=== PATIENT | male | born 1940 | race Caucasian/White ===

== ENCOUNTER → 2018-01-24 16:44 | Outpatient (CLI) | payer OTHER, SELFPAY ==
--- NOTE | 2018-01-24 16:47 | DI.MRI.S_ITS ---
PROCEDURE: MR CERVICAL SPINE WO CON INDICATIONS: HEREDITARY AND IDIOPATHIC HEUROPATHY,SPINAL STENOSIS TECHNIQUE: Noncontrast sagittal T1 spin echo and T2 fast spin echo, sagittal STIR, foraminal oblique sagittal T2 fast spin echo, and axial gradient echo or T2 fast spin echo through the cervical spine. COMPARISON: [facility], MR, C-SPINE WITHOUT CONTRAST, 09/22/2007, 15:27. FINDINGS: Image quality: Excellent. Alignment and Curvature: There is grade I C4 on C5 and C5 on C6 retrolisthesis. This is unchanged when compared with the study dated 09/22/07. Bone Marrow: Marrow demonstrates normal overall signal. Spinal Cord: Visualized spinal cord has normal size and signal. No cerebellar tonsillar herniation. Paraspinous Soft Tissues: No paravertebral masses. Prevertebral soft tissues are normal in thickness. C2-C3: Normal appearance. C3-C4: Mild disc desiccation and height loss. Blood based his bulge. Mild canal stenosis. Mild right and severe left foraminal stenosis. The degree of left neural foraminal narrowing is increased when compared with the study dated 09/22/07. C4-C5: Retrolisthesis. Moderate disc desiccation and height loss. Broad-based disc bulge. Mild canal stenosis. Severe bilateral neuroforaminal stenosis. These findings are unchanged when compared with the prior study. C5-C6: Retrolisthesis. Moderate distance ccation height loss. Broad-based disc bulge. Moderate canal stenosis. Severe bilateral foraminal narrowing. These findings are similar in extent to the prior study. C6-C7: Moderate disc desiccation and height loss. Broad-based disc bulge. Moderate canal stenosis. Severe bilateral foraminal stenosis. The extent of canal stenosis is slightly increased when compared with the prior study. C7-T1: Mild disc desiccation and height loss. No canal stenosis. No foraminal stenosis. These findings are unchanged. IMPRESSION: 1. Multilevel mild to moderate disc desiccation and height loss, overall similar in extent to the study dated 09/22/07. 2. Increased left neuroforaminal stenosis at C3-4 when compared with the prior study. 3. Unchanged severe bilateral neuroforaminal narrowing at C4-5, C5-6, and C6-7 when compared with the study from 09/22/07. 4. Slight increased canal stenosis at C6-7 when compared with the prior study. 5. Unchanged grade I retrolisthesis at C4-5 and C5-6. Dictated by: Cielo Wu M.D. on 01/27/2018 at 11:04 Approved by: Cielo Wu M.D. on 01/27/2018 at 11:12
--- NOTE | 2018-01-24 17:27 | DI.MRI.S_ITS ---
PROCEDURE: MR LUMBAR SPINE WO CON INDICATIONS: BILATERAL FOOT PAIN TECHNIQUE: Noncontrast sagittal T1 spin echo and T2 fast echo, sagittal STIR, axial T1 and T2 fast spin echo through the lumbar spine. In cases with scoliosis, additional coronal T2 fast spin echo may be performed. COMPARISON: [facility], CT, IVP (ABD & PEL WWO CONTRAST), 09/23/2012, 13:33. [facility], CR, KUB XRAY (1 VIEW ABDOMEN), 10/24/2015, 8:09. [facility], MR, L-SPINE WITHOUT CONTRAST, 01/06/2008, 6:47. FINDINGS: Image quality: Excellent. Alignment and Curvature: There is normal bony alignment. Bone Marrow: Marrow is of normal overall signal. No acute vertebral body compression fractures. Spinal Cord: Conus medullaris terminates at the mid L1 level. Visualized cord demonstrates normal signal and size. Paraspinous Soft Tissues: No paravertebral masses. Bilateral parapelvic renal cysts are present. L1-L2: Moderate disc height loss and desiccation. Mild diffuse disc bulge. Mild bilateral facet and ligamentum hypertrophy. Mild canal stenosis. No foraminal stenosis. No change. L2-L3: Moderate disc height loss and desiccation. Moderate diffuse disc bulge with superimposed broad-based left posterolateral protrusion. Mild bilateral facet and ligamentum flavum hypertrophy. Mild canal stenosis. Mild left greater than right foraminal stenosis. Minimal posterior deviation of the left L3 nerve root. No change. L3-L4: Moderate disc height loss and desiccation. Mild diffuse disc bulge. Mild bilateral facet and ligamentum flavum hypertrophy. Increased, mild canal stenosis. Increased mild bilateral foraminal stenosis. L4-L5: Mild disco loss and desiccation. Mild diffuse disc bulge. Superimposed small central protrusion. Increased, mild canal stenosis. Increased, mild right greater than left foraminal stenosis. L5-S1: Moderate disc height loss and desiccation. Mild diffuse disc bulge. Mild bilateral facet hypertrophy. Mild canal stenosis. Mild bilateral foraminal stenosis. No change. IMPRESSION: 1. Multilevel degenerative disc and facet disease, as well as ligamentum flavum hypertrophy and epidural lipomatosis. 2. Mild multilevel canal stenoses. 3. Multilevel mild foraminal stenoses. 4. No change in minimal posterior displacement of the left L3 nerve root at the L2-L3 disc space level. Recommend correlation with clinical symptoms to ascertain relevance of this finding. Dictated by: Cielo Wu M.D. on 01/27/2018 at 11:48 Approved by: Juan Morrissey M.D. on 01/27/2018 at 13:51
== END ==
PROVIDERS: Visit Provider Internal Medicine
DX: M48.02 Spinal stenosis, cervical region (principal); M43.12 Spondylolisthesis, cervical region; G60.9 Hereditary and idiopathic neuropathy, unspecified; M48.07 Spinal stenosis, lumbosacral region; M48.061 Spinal stenosis, lumbar region without neurogenic claudication; M79.672 Pain in left foot; M79.671 Pain in right foot; M51.36 Other intervertebral disc degeneration, lumbar region; M51.37 Other intervertebral disc degeneration, lumbosacral region; E88.2 Lipomatosis, not elsewhere classified
CPT/HCPCS: 72141; 72148

== ENCOUNTER → 2018-02-13 09:08 | Outpatient (CLI) | payer OTHER, SELFPAY ==
[2018-02-13 10:29] LABS: Alanine Aminotransferase 48 IU/L (21-72); Albumin 4.3 g/dL (3.5-5.0); Albumin Globulin Ratio 1.9 (1.0-2.8); Alkaline Phosphatase 71 U/L (38-126); Aspartate Aminotransferase 32 IU/L (17-59); BUN Creatinine Ratio 28.6 (6-22); Bilirubin Total 1.1 mg/dL (0.2-1.3); Blood Urea Nitrogen 20 mg/dL (9-20); Calcium 9.2 mg/dL (8.4-10.2); Carbon Dioxide 25 mmol/L (22-32); Chloride 107 mmol/L (98-107); Estimated Glomerular Filt Rate > 60.0 mL/min (>60); Globulin 2.3 g/dL (1.7-4.1); Glucose 106 mg/dL (80-110); HEMOLYSIS < 15 (0-50); Potassium 4.5 mmol/L (3.4-5.1); Sodium 142 mmol/L (137-145); Total Protein 6.6 g/dL (6.3-8.2)
[2018-02-17 09:46] LABS: Lipoprofile NMR SEE SEPERATE REPORT
== END ==
PROVIDERS: Family Provider Internal Medicine; PCP Internal Medicine; Visit Provider Urology
DX: N40.1 Benign prostatic hyperplasia with lower urinary tract symptoms (principal); Z80.42 Family history of malignant neoplasm of prostate; I25.10 Atherosclerotic heart disease of native coronary artery without angina pectoris; I10 Essential (primary) hypertension; E78.2 Mixed hyperlipidemia; E78.89 Other lipoprotein metabolism disorders
CPT/HCPCS: 36415; 80053; 83695; 83704; 83735; 84153

== ENCOUNTER → 2018-09-08 07:53 | Outpatient (CLI) | payer OTHER, SELFPAY ==
[2018-09-08 08:53] LABS: Alanine Aminotransferase 28 IU/L (21-72); Albumin 4.3 g/dL (3.5-5.0); Albumin Globulin Ratio 1.7 (1.0-2.8); Alkaline Phosphatase 50 U/L (38-126); Aspartate Aminotransferase 31 IU/L (17-59); BUN Creatinine Ratio 17.5 (6-22); Bilirubin Total 0.9 mg/dL (0.2-1.3); Blood Urea Nitrogen 14 mg/dL (9-20); Calcium 9.6 mg/dL (8.4-10.2); Carbon Dioxide 29 mmol/L (22-32); Chloride 105 mmol/L (98-107); Estimated Glomerular Filt Rate > 60.0 mL/min (>60); Globulin 2.6 g/dL (1.7-4.1); Glucose 106 mg/dL (80-110); HEMOLYSIS < 15 (0-50); Potassium 5.1 mmol/L (3.4-5.1); Sodium 140 mmol/L (137-145); Total Protein 6.9 g/dL (6.3-8.2)
[2018-09-10 10:11] LABS: Lipoprofile NMR SEE SEPARATE REPORTS
[2018-09-10 12:34] LABS: Lipoprotein (a) 159 nmol/L (<75)
== END ==
PROVIDERS: Family Provider Urology; PCP Internal Medicine; Visit Provider Specialist
DX: E78.41 Elevated Lipoprotein(a) (principal); E78.2 Mixed hyperlipidemia
CPT/HCPCS: 36415; 80053; 83695; 83704

== ENCOUNTER → 2019-07-22 08:58 | Outpatient (CLI) | payer MEDICARE, SELFPAY ==
[2019-07-22 10:07] LABS: Alanine Aminotransferase 25 IU/L (<50); Albumin 4.2 g/dL (3.5-5.0); Albumin Globulin Ratio 1.7 (1.0-2.8); Alkaline Phosphatase 51 U/L (38-126); Aspartate Aminotransferase 31 IU/L (17-59); BUN Creatinine Ratio 15.6 (6-22); Bilirubin Total 0.6 mg/dL (0.2-1.3); Blood Urea Nitrogen 12 mg/dL (9-20); Calcium 9.5 mg/dL (8.4-10.2); Carbon Dioxide 23 mmol/L (22-32); Chloride 108 mmol/L (98-107); Estimated Glomerular Filt Rate > 60.0 mL/min (>60); Globulin 2.5 g/dL (1.7-4.1); Glucose 111 mg/dL (80-110); HEMOLYSIS < 15 (0-50); Potassium 3.9 mmol/L (3.4-5.1); Sodium 139 mmol/L (137-145); Total Protein 6.7 g/dL (6.3-8.2)
[2019-07-23 06:36] LABS: SARS CoV19 IgG Negative (Negative)
[2019-07-24 07:40] LABS: Cholesterol, Total 168 mg/dL (100-199); HDL-Cholesterol 85 mg/dL (>39); HDL-Particle (Total) 43.7 umol/L (>=30.5); Historical Reading Comment: (.); LDL Particle 521 nmol/L (<1000); LDL-Cholsterol 67 mg/dL (0-99); LP-IR Score 25 (<=45); Small LDL- Particle <90 nmol/L (<=527); Triglycerides 82 mg/dL (0-149)
== END ==
PROVIDERS: Specialist; Family Provider Urology; PCP Internal Medicine; Referring Provider Internal Medicine; Visit Provider Internal Medicine
DX: E78.2 Mixed hyperlipidemia (principal)
CPT/HCPCS: 36415; 80053; 80061; 83704; 86769

== ENCOUNTER → 2019-08-04 15:53 | Outpatient (CLI) | payer MEDICARE, SELFPAY ==
--- NOTE | 2019-08-04 16:23 | DI.ECHO.S_ITS ---
Echocardiogram Report + + :Name: CAROLA MCKNIGHT Study Date: 08/04/2019 Height: 67 in : :[facility] Weight: 174 lb : : Gender: Male BSA: 1.9 m2 : :: 1940 Age: 78 yrs BP: 140/75 mmHg: :Reason For Study: MURMUR : : Performed By: Pb Lawler : :Referring: AUSTEN OSORIO : + + Interpretation Summary The left ventricle appears normal in size with normal systolic function with an EF estimated at 60 to 65% without focal wall motion abnormality, and appears slightly smaller and slightly more dynamic compared to the previous study. There is now evidence for a mild relaxation abnormality, new from the previous exam but probable normal filling pressures. The right ventricle appears mildly enlarged with systolic function the lower limits of normal but unchanged from the previous exam. Right ventricular systolic pressure is again estimated at 25 mmHg with a CVP of 3 mmHg, unchanged from the previous study. There is mild left atrial enlargement with normal right atrial, the latter slightly smaller compared to the previous study. There is mild to moderate mitral and moderate pulmonic valve regurgitation, both appearing slightly more prominent compared to the previous study. There is trivial tricuspid regurgitation which is less prominent. There is mild aortic valve stenosis with a peak velocity of 2.5 m/s, up from 2.2 m/s previously with a mean gradient of 15 mmHg compared to 9 mmHg, previously. There is mild aortic regurgitation which is also slightly progressive. The ascending aorta is mildly enlarged but unchanged in size. The patient was in sinus rhythm at 60 to 70 bpm which is slightly faster compared to the previous exam. Procedure: A two-dimensional transthoracic echocardiogram with color flow and Doppler was performed. The study quality was technically adequate. Comparison is made with the echocardiogram of 05/24/16. The patient was in normal sinus rhythm during the exam. Left Ventricle: The left ventricle is normal in size, wall thickness, and systolic function without any focal wall motion abnormalities. The ejection fraction is estimated to be 60-65%. This is slightly smaller and slightly more dynamic compared to the previous study. Diastolic parameters suggest a relaxation abnormality of the left ventricle, consistent with probable normal filling pressures. This is new compared to the previous study. Right Ventricle: The right ventricle is mildly dilated. Right ventricular systolic function is at the lower limits of normal. This is unchanged compared to the previous study. Atria: The left atrium is mildly dilated. This is unchanged compared to the previous study. Right atrial size is normal. The right atrium has mildly decreased in size since the prior echo exam. The interatrial septum is intact with no evidence for an atrial septal defect. Mitral Valve: There is mild mitral annular calcification. The mitral valve leaflets appear borderline thickened, but open well. There is mild to moderate mitral regurgitation. This is slightly more prominent compared to the previous study. Aortic Valve: There is mildly reduced leaflet mobility. The aortic valve is trileaflet. The aortic valve is mildly calcified. There is mild aortic stenosis. The peak aortic velocity is 2.53 m/sec. The aortic valve mean gradient is 15.1 mmHg. The calculated aortic valve area is 1.5 cm2. The aortic valve area is 2.0 centimeters squared by planimetry. This is slightly progressive compared to the previous study. There is mild aortic regurgitation. Tricuspid Valve: The tricuspid valve is normal in structure and function. There is trace tricuspid regurgitation. This is less prominent compared to the previous study. The right ventricular systolic pressure is estimated to be at least 25 mmHg based on an estimated right atrial pressure of 3 mm Hg. This is unchanged compared to the previous study. Pulmonic Valve: The pulmonic valve is normal in structure and function. There is moderate pulmonic regurgitation. This is slightly mopre prominent compared to the previous study. Great Vessels: The aortic root is normal size. The ascending aorta is mildly enlarged. This is unchanged compared to the previous study. The pulmonary artery is normal size. The IVC is of normal diameter and collapses greater than 50% with a sniff. This suggests a low right atrial pressure of 3 mm Hg. Pericardium/ Pleura There is no pericardial effusion. There is no pleural effusion. MMode/2D Measurements & Calculations LVIDd: 5.1 cm LVOT diam: 2.1 cm LVIDs: 3.2 cm Ao root diam: 3.4 cm FS: 37.4 % asc Aorta Diam: 3.7 cm EPSS: 0.37 cm Ao Arch Diam (Prox Trans): 2.5 cm IVSd: 0.95 cm LVPWd: 0.87 cm LV wilson. diameter/BSA (cm/m^2): 2.7 LV sys. diameter/BSA (cm/m^2): 1.7 LA dimension: 4.3 cm RA long axis: 4.9 cm LA A2 area: 20.9 cm2 RA area: 16.7 cm2 LA A4 area: 20.7 cm2 RA vol: 48.3 ml LA length (vol): 5.2 cm RA : 25.3 ml/m2 LA vol: 71.0 ml IVC diam: 1.7 cm LA vol index: 37.2 ml/m2 RVD1 (basal): 4.8 cm RVD2 (mid): 4.6 cm TAPSE: 2.5 cm Doppler Measurements & Calculations Ao V2 max: 253.0 cm/sec LVOT Max Lucas: 107.6 cm/sec Ao V2 mean: 186.8 cm/sec LV V1 max P.6 mmHg Ao max P.6 mmHg LV V1 VTI: 23.2 cm Ao mean P.1 mmHg WESLEY(I,D): 1.3 cm2 Ao V2 VTI: 60.8 cm WESLEY(V,D): 1.5 cm2 sev ratio: 0.38 WESLEY indexed to BSA (cm^2/m^2): 0.69 MV E max lucas: 81.1 cm/sec TR max lucas: 234.8 cm/sec MV A max lucas: 103.4 cm/sec TR max P.1 mmHg MV E/A: 0.78 PA V2 max: 97.4 cm/sec Med Peak E' Lucas: 6.1 cm/sec PA V2 mean: 69.1 cm/sec E/E' med: 13.3 PA mean P.1 mmHg Lat Peak E' Lucas: 8.4 cm/sec PA pr(Accel): 31.0 mmHg E/E' lat: 9.6 E/e' average: 11.5 MV dec time: 0.20 sec SV(LVOT): 80.0 ml Reading Physician:PM
== END ==
PROVIDERS: Family Provider Urology; PCP Internal Medicine; Referring Provider Specialist; Visit Provider Specialist
DX: I08.0 Rheumatic disorders of both mitral and aortic valves (principal); I77.89 Other specified disorders of arteries and arterioles; R01.1 Cardiac murmur, unspecified
CPT/HCPCS: 93306

== ENCOUNTER → 2019-11-25 08:38 | Outpatient (CLI) | payer MEDICARE, SELFPAY ==
--- NOTE | 2019-11-25 | DI.MRI.S_ITS ---
PROCEDURE: MR LUMBAR SPINE WO CON INDICATIONS: Sciatica, right side TECHNIQUE: Noncontrast sagittal T1 spin echo and T2 fast echo, coronal T2, sagittal STIR, axial T1 and T2 fast spin echo through the lumbar spine. COMPARISON: [facility], MR, MR LUMBAR SPINE WO CON, 01/24/2018, 18:01. [facility], CR, KUB XRAY (1 VIEW ABDOMEN), 10/24/2015, 8:09. FINDINGS: Image quality: Excellent. Alignment and Curvature: 5 lumbar type vertebral bodies are present by plain film. There is mild, grade 1 retrolisthesis of L1 on L2, L2 on L3, L3 on L4, and L4 on L5. Bone Marrow: Marrow is of normal overall signal. No acute vertebral body compression fractures. Moderate reactive signal within the endplates adjacent to the L2-L3 intervertebral disc, increased from the prior examination. Mild reactive signal within the endplates adjacent to the L1-L2, L3-L4, L4-L5, and L5-S1 intervertebral discs. Spinal Cord: Conus medullaris terminates at the mid L1 level. Visualized cord demonstrates normal signal and size. Paraspinous Soft Tissues: No paravertebral masses. L1-L2: Moderate disc height loss and desiccation. Mild diffuse disc bulge. Mild facet and ligamentum flavum hypertrophy. Mild canal stenosis. No foraminal stenosis. No change. L2-L3: There is increased, severe disc height loss and desiccation. Moderate diffuse disc bulge is present with superimposed left posterolateral protrusion, which is increased. Mild facet and ligamentum flavum hypertrophy is present. Mild epidural lipomatosis. There is increased, moderate canal stenosis. There is no change in mild bilateral foraminal stenosis. There is compression of the left L3 nerve root within the lateral recess, new since the prior examination. L3-L4: Moderate disc height loss and desiccation. Mild diffuse disc bulge. Mild facet and ligamentum flavum hypertrophy. Mild canal stenosis. Mild bilateral foraminal stenosis. No change. L4-L5: Mild disc height loss and desiccation. Mild diffuse disc bulge with superimposed central protrusion. Mild facet and ligamentum flavum hypertrophy. Mild epidural lipomatosis. Mild canal stenosis. Mild right greater than left foraminal stenosis. No change. L5-S1: Moderate disc height loss and desiccation. Mild diffuse disc bulge. Mild facet hypertrophy bilaterally. Mild canal stenosis. Mild bilateral foraminal stenosis. No change. IMPRESSION: 1. Multilevel degenerative disc and facet disease, as well as ligamentum flavum hypertrophy and epidural lipomatosis. 2. Multilevel canal stenoses, worst at L2-L3, where there is increased, moderate canal stenosis. 3. Mild multilevel foraminal stenoses. 4. Left L3 nerve root compression at the L2-L3 disc space level as described above. Recommend correlation with clinical symptoms to ascertain relevance of this finding. Dictated by: Juan Morrissey M.D. on 11/25/2019 at 10:58 Approved by: Juan Morrissey M.D. on 11/25/2019 at 11:05
--- NOTE | 2019-11-25 | DI.RAD.S_ITS ---
PROCEDURE: XR LUMBAR SPINE 2-3V INDICATIONS: Low back pain TECHNIQUE: 3 views of the lumbar spine were acquired. COMPARISON: [facility], MR, MR LUMBAR SPINE WO CON, 01/24/2018, 18:01. [facility], MR, MR LUMBAR SPINE WO CON, 11/25/2019, 9:01. FINDINGS: Bones: 5 [id number] vertebrae are present. There is minimal dextroconvex scoliotic curvature. There is minimal retrolisthesis seen at L1-2 and mild retrolisthesis seen at L2-3. No vertebral body compression fractures. No suspicious bony lesions. Bridging anterior osteophytes are seen at L1-L2. Moderate disc space narrowing is seen at this level. Moderate to severe disc space narrowing is seen at L2-3, with associated endplate irregularity and sclerosis. Moderate disc space narrowing is seen at the L5-S1 level. Lower lumbar spine facet arthropathy is seen. Soft tissues: Overlying bowel gas pattern is normal. No suspicious soft tissue calcifications. IMPRESSION: Multiple levels of lumbar spine degenerative change are seen, which are better demonstrated on the accompanying lumbar spine MRI examination. Dictated by: Ronal Gandhi M.D. on 11/25/2019 at 10:18 Approved by: Ronal Gandhi M.D. on 11/25/2019 at 10:19
== END ==
PROVIDERS: Family Provider Urology; PCP Internal Medicine; Referring Provider Internal Medicine; Visit Provider Internal Medicine
DX: M54.5 Low back pain (principal); M51.16 Intervertebral disc disorders with radiculopathy, lumbar region; M51.17 Intervertebral disc disorders with radiculopathy, lumbosacral region; M48.061 Spinal stenosis, lumbar region without neurogenic claudication; M48.07 Spinal stenosis, lumbosacral region; E88.2 Lipomatosis, not elsewhere classified
CPT/HCPCS: 72100; 72148

== ENCOUNTER → 2019-12-05 14:07 | Outpatient (CLI) | payer MEDICARE, SELFPAY ==
[2019-12-07 02:03] LABS: COVID19 Sendout Not Detected (Not Detect)
== END ==
PROVIDERS: Family Provider Urology; PCP Internal Medicine; Visit Provider Student in an Organized Health Care Education/Training Program
DX: Z11.59 Encounter for screening for other viral diseases (principal)
CPT/HCPCS: 87635

== ENCOUNTER 2019-12-08 13:57 | Outpatient (CLI) | payer MEDICARE, SELFPAY ==
[2019-12-08] VITALS (9 sets, daily range): BP systolic 124–158; BP diastolic 65–89; PULSE 50–91; RESP 12–27; O2SAT 97–100
--- NOTE | 2019-12-08 14:00 | DI.RAD.S_ITS ---
PROCEDURE: PAIN L/S TRANSFORAMINAL INJECT INDICATIONS: SPONDYLOSIS COMPARISON: None. FINDINGS: Fluoroscopic spot filming was performed to verify placement of spinal needles at the L2-3 level(s), as labeled on the films. Appropriate location(s) of the needle tip(s) was confirmed by injection of iodinated contrast. IMPRESSION: Successful needle tip localization for transforaminal epidural steroid injection centered on the left L2-L3 neural foramen. Dictated by: Darshan Wallace M.D. on 12/08/2019 at 16:16 Approved by: Darshan Wallace M.D. on 12/08/2019 at 16:16
[2019-12-08] MEDS: MIDAZOLAM 5 MG/5 ML VIAL IV (15:10)
[2019-12-08] MEDS: fentaNYL 100 MCG/2 ML INJ 50 MCG IV (15:13)
[2019-12-08] MEDS: DEXAMETHASONE 10 MG/ML VIAL 20 MG INJ (15:16)
[2019-12-08] MEDS: IOPAMIDOL 15 ML VIAL 3 ML INJ (15:16)
[2019-12-08] MEDS: BUPIVACAINE 0.25% (PF) VIAL 2 ML INJ (15:16)
[2019-12-08] MEDS: BETAMETHASONE 30 MG/5 ML MDV 6 MG INJ (15:16)
--- NOTE | 2019-12-08 15:25 | P.PCN_ITS ---
Date/Time/Diagnoses Date of procedure: 12/08/19 Time of procedure: 15:26 Pre-procedure diagnosis: 1. FORAMINAL STENOSIS WITH LE SYMPTOMS Post-procedure diagnosis: same Procedure Notes Procedure: 1. FLUOROSCOPICALLY GUIDED CONTRAST CONTROLLED TRANSFORAMINAL EPIDURAL STEROID INJECTION - LEFT L2/3 TFESI Indications: Manny is referred by Dr. Joshi for treatment of Foraminal Stenosis with left LE Symptoms Physician: Julio James Total Fluoroscopy time (seconds): 9 Total sedation minutes: 16 Complications: none Procedure in detail & Post-procedure care: FINDINGS Foraminal Nerve Root Compression secondary to disc disease and facet hypertrophy DESCRIPTION OF PROCEDURE Following review of allergy and review of potential side effects and complications, including, but not necessarily limited to, infection, allergic reaction, local tissue breakdown, stroke, temporary or permanent nerve injury, paralysis, and possible , the patient indicated that the patient understood and agreed to proceed. An informed consent document was signed by the patient, witnessed by a nurse, and placed in the patient's chart. Additionally, other treatment options including medications, modalities, and physical therapy were reviewed with the patient. After review of previous anaesthesic history and IV conscious sedation the patient was deemed safe to proceed with today?s procedure with IV conscious sedation as ASA class II designation. Safety time-out was performed to confirm patient ID, procedure to be performed and site of procedure. IV sedation was accomplished with a combination of 2mg of Versed and 50mcg of Fentanyl was administered by the RN after DO order, titrated to patient comfort during the course of the procedure while the patient remained responsive to all verbal com mands In the prone position following sterile prep and drape of the lumbar region, the left L2/3 posterior neuroforamen was identified fluoroscopically. The skin was anesthetized via a 25-gauge 1.5-inch needle with 1% lidocaine solution. At this point, a 25-gauge 3.5-inch spinal needle was atraumatically introduced and advanced under fluoroscopic guidance through the posterior left L2/3 neurofo ramen to approximately the anterior aspect of the canal. Depth was confirmed on lateral view. Following negative aspiration, injection of approximately 1.5cc of Isovue 200 under live fluoroscopy in the AP view confirmed excellent flow along the nerve root, into the epidural space without vascular or intrathecal uptake observed Radiological data, including multiple fluoroscopic views of the lumbosacral spine, reveal a spinal needle at the left L2/3 posterior neuroforamen. Subsequent views show flow of contrast material flowing superiorly and inferiorly along the nerve root confirming epidural flow. Subsequently, a test dose of 1.5 cc of 0.25% marcaine solution was administered and patient was observed for two minutes for signs or symptoms of complications, including abdominal pain, shortness of breath, bilateral upper or lower extremity weakness, nausea and vomiting, prior to steroid injection. At this point, a total of 2cc or 20mg of dexamethasone and 6mg of betamethasone was injected without incident. The patient tolerated the procedure well without signs or symptoms of complications prior to transfer to the recovery area continued monitoring without incident. The patient was then transferred to the recovery area where they were observed for an appropriate time after the injection. The patient reported a VAS score of 7 prior to the procedure and a post-procedure VAS of 0. POST OP INSTRUCTIONS The patient was provided a Pain Log to continue to record their response to the target-specific procedure prior to follow-up visit with their referring physician. Additionally, specific post-injection care instructions and a contact number to our office were provided if concerns arise regarding possible complications associated with the procedure are suspected.
== END 2019-12-08 15:45 | disposition home or self-care (01) ==
PROVIDERS: Family Provider Urology; PCP Internal Medicine; Referring Provider Physical Medicine & Rehabilitation; Visit Provider Physical Medicine & Rehabilitation
DX: M48.061 Spinal stenosis, lumbar region without neurogenic claudication (principal); M51.16 Intervertebral disc disorders with radiculopathy, lumbar region
CPT/HCPCS: 64483; 99152; J0702; J1100; J2250; J3010

== ENCOUNTER → 2020-06-15 12:19 | Outpatient (CLI) | payer OTHER, SELFPAY ==
[2020-06-15 13:26] LABS: Alanine Aminotransferase 29 IU/L (<50); Albumin 4.2 g/dL (3.5-5.0); Albumin Globulin Ratio 1.8 (1.0-2.8); Alkaline Phosphatase 58 U/L (38-126); Aspartate Aminotransferase 36 IU/L (17-59); BUN Creatinine Ratio 18.9 (6-22); Bilirubin Total 0.9 mg/dL (0.2-1.3); Blood Urea Nitrogen 14 mg/dL (9-20); Calcium 9.7 mg/dL (8.4-10.2); Carbon Dioxide 26 mmol/L (22-32); Chloride 105 mmol/L (98-107); Estimated Glomerular Filt Rate > 60.0 mL/min (>60); Globulin 2.4 g/dL (1.7-4.1); Glucose 108 mg/dL (80-110); HEMOLYSIS < 15 (0-50); Potassium 4.7 mmol/L (3.4-5.1); Sodium 139 mmol/L (137-145); Total Protein 6.6 g/dL (6.3-8.2)
[2020-06-17 10:09] LABS: Cholesterol, Total 164 mg/dL (100-199); HDL-Cholesterol 83 mg/dL (>39); HDL-Particle (Total) 39.2 umol/L (>=30.5); LDL Particle 478 nmol/L (<1000); LDL Size 21.1 nm (>20.5); LDL-Cholsterol 70 mg/dL (0-99); LP-IR Score <25 (<=45); Small LDL- Particle <90 nmol/L (<=527); Triglycerides 56 mg/dL (0-149)
[2020-09-15 09:45] VITALS: BP 138/70; PULSE 53; RESP 20; TEMP 36.3; O2SAT 99
[2020-09-15 10:26] VITALS: BP 130/76; PULSE 55; RESP 20; O2SAT 100
[2020-09-15 10:30] VITALS: BP 128/64; PULSE 58; RESP 18; O2SAT 100
--- NOTE | 2020-09-15 10:49 | PC.NURSE ---
please disregard charting by this RN for this patient pulled up for todays procedure please see other patients chart
== END ==
PROVIDERS: Family Provider Urology; PCP Internal Medicine; Referring Provider Specialist; Visit Provider Specialist
DX: E78.00 Pure hypercholesterolemia, unspecified (principal)
CPT/HCPCS: 36415; 80053; 80061; 83704

== ENCOUNTER 2020-09-15 09:30 | Outpatient (CLI) | payer OTHER, SELFPAY ==
[2020-09-15] VITALS (10 sets, daily range): BP systolic 112–145; BP diastolic 63–70; PULSE 46–56; RESP 16–23; TEMP 36.1; O2SAT 94–100
--- NOTE | 2020-09-15 09:34 | DI.RAD.S_ITS ---
PROCEDURE: PAIN L INTERLAMINAR/CAUDAL INJ INDICATIONS: SPONDYLOSIS COMPARISON: None. FINDINGS: Fluoroscopic spot filming was performed to verify placement of spinal needles at the L2-L3 level(s), as labeled on the films. Appropriate location(s) of the needle tip(s) was confirmed by injection of iodinated contrast. Dictated by: Marcio Boudreaux M.D. on 09/15/2020 at 11:07 Approved by: Marcio Boudreaux M.D. on 09/15/2020 at 11:08
[2020-09-15] MEDS: MIDAZOLAM 5 MG/5 ML VIAL IV (10:28)
[2020-09-15] MEDS: fentaNYL 100 MCG/2 ML INJ 50 MCG IV (10:36)
[2020-09-15] MEDS: BUPIVACAINE 0.25% (PF) VIAL 2 ML INJ (10:37)
[2020-09-15] MEDS: IOPAMIDOL 15 ML VIAL 3 ML INJ (10:37)
[2020-09-15] MEDS: DEXAMETHASONE 10 MG/ML VIAL 20 MG INJ (10:38)
[2020-09-15] MEDS: methylPREDNISolone acetate 80 MG/ML VIAL INJ (10:38)
--- NOTE | 2020-09-15 10:42 | PM.PROC.IR.1 ---
Date/Time/Diagnoses Date of procedure: 09/15/20 Time of procedure: 10:42 Pre-procedure diagnosis: 1. HNP WITH RADICULAR FEATURES, 2. MULTILEVEL CENTRAL STENOSIS, Post-procedure diagnosis: same Procedure Notes Procedure: 1. FLUOROSCOPICALLY GUIDED CONTRAST CONTROLLED INTERLAMINAR EPIDURAL STEROID INJECTION - L2/3 Indications: Manny is referred by Dr. Joshi for treatment of Bilateral Foraminal Stenosis L>R LE symptoms. Physician: Julio James Total Fluoroscopy time (seconds): 9 Total sedation minutes: 11 Complications: none Procedure in detail & Post-procedure care: FINDINGS Multilevel Central Spinal Stenosis with Nerve Root Compression DESCRIPTION OF PROCEDURE Fluoroscopically guided, contrast-controlled L2/3 translaminar epidural steroid injection. Following review of allergy and review of potential side effects and complications, including, but not necessarily limited to, infection, allergic reaction, local tissue breakdown, temporary as well as permanent nerve injury, paralysis, stroke and possible , the patient indicated that the patient understood and agreed to proceed. An informed consent document was signed by the patient, witnessed by a nurse, and placed in the patient's chart. Additionally, other treatment options including modalities, medications, and physical therapy were reviewed with the patient. After review of previous anaesthesic history and IV conscious sedation the patient was deemed safe to proceed with today?s procedure with IV conscious sedation as ASA class II designation. Safety time-out was performed to confirm patient ID, procedure to be performed and site of procedure. IV sedation was accomplished with a combination of 2mg Versed and 50mcg of Fentanyl administered by the RN after DO order, titrated to patient comfort during the course of the procedure while the patient remained responsive to all verbal commands. In the prone position, following sterile prep and drape of the lumbar region,the L2/3 translaminar space was identified fluoroscopically. The skin was anesthetized via a 25-gauge, 1.5-inch needle with 1% lidocaine solution. At this point, a 22-gauge short bevel spinal needle was atraumatically introduced and advanced under fluoroscopic guidance into the region of the L2/3 translaminar space. Depth was confirmed on lateral view. Radiological data, including multiple fluoroscopic views of the lumbar spine, reveal a spinal needle at the L2/3 translaminar space. Lateral views then show placement of the needle in the epidural space. Subsequent views show contrast material flowing superiorly and inferiorly in the epidural space. No vascular or intrathecal uptake is observed. At this point, using loss of resistance technique with saline and air, the epidural space was entered. This was confirmed following negative aspiration with injection of approximately 1.5 cc of Isovue 200, showing excellent epidural flow without vascular or intrathecal uptake. At this point, 1 cc of 1% lidocaine solution combined with 3cc or 20mg of dexamethasone and 80mg Depo medrol was injected without incident. The patient tolerated the procedure well without signs or symptoms of complications prior to transfer to the recovery area continued monitoring without incident. The patient was then transferred to the recovery area where they were observed for an appropriate period of time after the injection. The patient reported a VAS score of 6 prior to the procedure and a post-procedure VAS of 0. POST OP INSTRUCTIONS The patient was provided a Pain Log to continue to record their response to the target-specific procedure prior to follow-up visit with their referring physician. Additionally, specific post-injection care instructions and a contact number to our office were provided if concerns arise regarding possible complications associated with the procedure are suspected.
== END 2020-09-15 11:06 | disposition home or self-care (01) ==
LOC: RAD 09:33
PROVIDERS: Family Provider Urology; PCP Internal Medicine; Referring Provider Physical Medicine & Rehabilitation; Visit Provider Physical Medicine & Rehabilitation
DX: M51.16 Intervertebral disc disorders with radiculopathy, lumbar region (principal); M48.061 Spinal stenosis, lumbar region without neurogenic claudication
CPT/HCPCS: 62323; 99152; J0702; J1040; J1100; J2250; J3010

== ENCOUNTER → 2021-03-01 08:49 | Outpatient (CLI) | payer OTHER, SELFPAY ==
[2021-03-01 11:26] LABS: Alanine Aminotransferase 26 IU/L (<50); Albumin 4.3 g/dL (3.5-5.0); Albumin Globulin Ratio 1.9 (1.0-2.8); Alkaline Phosphatase 49 U/L (38-126); Aspartate Aminotransferase 29 IU/L (17-59); BUN Creatinine Ratio 23.4 (6-22); Bilirubin Total 0.8 mg/dL (0.2-1.3); Blood Urea Nitrogen 18 mg/dL (9-20); Calcium 9.5 mg/dL (8.4-10.2); Carbon Dioxide 26 mmol/L (22-32); Chloride 107 mmol/L (98-107); Estimated Glomerular Filt Rate > 60.0 mL/min (>60); Globulin 2.3 g/dL (1.7-4.1); Glucose 107 mg/dL (80-110); HEMOLYSIS < 15 (0-50); Potassium 4.6 mmol/L (3.4-5.1); Sodium 140 mmol/L (137-145); Total Protein 6.6 g/dL (6.3-8.2)
[2021-03-01 11:39] LABS: Hemoglobin A1C% w Est Avg Glu 6.5 % (4.0-6.0)
[2021-03-01 11:57] LABS: Prostate Specific Antigen 2.81 ng/mL (0.10-4.00)
[2021-03-01 11:58] LABS: TSH w/ Reflex to FT4 1.37 uIU/mL (0.47-4.68)
[2021-03-04 09:07] LABS: Cholesterol, Total 178 mg/dL (100-199); HDL-Cholesterol 84 mg/dL (>39); LDL Particle 779 nmol/L (<1000); LDL-Cholsterol 80 mg/dL (0-99); LP-IR Score <25 (<=45); Small LDL- Particle 247 nmol/L (<=527); Triglycerides 73 mg/dL (0-149)
== END ==
PROVIDERS: Family Provider Urology; PCP Internal Medicine; Referring Provider Internal Medicine; Visit Provider Specialist
DX: I10 Essential (primary) hypertension (principal); R73.03 Prediabetes; Z80.42 Family history of malignant neoplasm of prostate; E78.2 Mixed hyperlipidemia; E78.00 Pure hypercholesterolemia, unspecified
CPT/HCPCS: 36415; 80053; 80061; 83036; 83704; 83735; 84153; 84443

== ENCOUNTER → 2021-03-07 08:07 | Outpatient (CLI) | payer OTHER, SELFPAY ==
--- NOTE | 2021-03-07 | DI.ECHO.S_ITS ---
[facility] +---------+ : : [address] [place] : : : : [id number] : : : : Phone: [phone] Echocardiogram Report + + :Name: CAROLA MCKNIGHT Study Date: 03/07/2021 Height: 66.5 in: :[facility] ReadingLocation: Weight: 180 lb : : Gender: Male BSA: 1.9 m2 : :: 1940 Age: 80 yrs BP: 142/77 mmHg: :Reason For Study: CONGENITAL MALFORMATION OF HEART, : :UNSPECIFIED : :Ordering Physician: DEVON, : :AUSTEN Performed By: Mamie Kim : :Referring: AUSTEN OSORIO : + + Interpretation Summary Left ventricular systolic function remains normal with an estimated ejection fraction of 60 to 65% without any focal wall motion abnormality and appears unchanged from the previous exam. Left ventricular size and wall thickness remain normal and unchanged. Diastolic function is likely normal with probable normal filling pressures. There has been no significant change since the previous study. The right ventricle is moderately enlarged with borderline reduced systolic function and appears slightly larger and slightly less dynamic compared to the previous study. Right ventricular systolic pressure is estimated at 33 mmHg with a CVP of 3 mmHg, and is likely slightly higher compared to the previous exam. Both atria are normal in size and measure slightly smaller compared to the previous study. There is mild mitral regurgitation that is unchanged from the previous exam, mild tricuspid regurgitation that is slightly more prominent, and mild to moderate pulmonic valve regurgitation that is less prominent compared to the previous study. There continues to be mild aortic stenosis that is essentially unchanged from the previous study with a peak transvalvular aortic velocity of 2.6 m/s with a mean gradient of 16 mmHg compared to 2.5 m/s and 15 mmHg, respectively, on the previous study. The severity ratio is 0.40 compared to 0.38 previously. There continues to be trace aortic insufficiency that is unchanged. The ascending aorta is mildly enlarged at 3.5 cm but measures slightly smaller compared to the previous study's measurement of 3.7 cm. Procedure: A two-dimensional transthoracic echocardiogram with color flow and Doppler was performed. The study quality was technically adequate. Comparison is made with the echocardiogram of 08/04/2019. Left Ventricle: The left ventricle appears normal in size, wall thickness, and systolic function without any focal wall motion abnormalities. The estimated left ventricular end diastolic volume is 93 ml. The ejection fraction is estimated to be 60-65%. Diastolic parameters suggest probable normal left ventricular diastolic function and normal filling pressures. There has been no significant change since the previous study. Right Ventricle: The right ventricle is moderately dilated. Right ventricular systolic function is at the lower limits of normal. This is slightly larger and slightly less dynamic compared to the previous study. Atria: Both atria are normal in size. Both atria have mildly decreased in size since the prior echo exam. There is no Doppler evidence for an interatrial shunt. Mitral Valve: There is mild mitral annular calcification. There is mild mitral regurgitation. This is unchanged compared to the previous study. Aortic Valve: The aortic valve is trileaflet. The aortic valve is moderately calcified. There is mildly reduced leaflet mobility. There is mild aortic stenosis. This is unchanged compared to the previous study. The peak aortic velocity is 2.6 m/sec. The aortic valve mean gradient is 16 mmHg. The calculated aortic valve area is 1.6 cm2. There is trace aortic regurgitation. This is unchanged compared to the previous study. Tricuspid Valve: The tricuspid valve is normal in structure and function. There is mild tricuspid regurgitation. This is more prominent compared to the previous study. The right ventricular systolic pressure is estimated to be at least 33 mmHg based on an estimated right atrial pressure of 3 mm Hg. Pulmonic Valve: The pulmonic valve leaflets are thin and pliable; valve motion is normal. There is mild to moderate pulmonic regurgitation. This is less prominent compared to the previous study. Great Vessels: The aortic root is normal size. The ascending aorta is mildly enlarged. This is unchanged compared to the previous study. The IVC is of normal diameter and collapses greater than 50% with a sniff. This suggests a low right atrial pressure of 3 mm Hg. Pericardium/ Pleura There is no pericardial effusion. There is no pleural effusion. MMode/2D Measurements & Calculations LVIDd: 5.1 cm LVOT diam: 2.1 cm LVIDs: 3.3 cm Ao root diam: 3.3 cm FS: 34.8 % asc Aorta Diam: 3.5 cm IVSd: 0.89 cm Ao Arch Diam (Prox Trans): 2.9 cm LVPWd: 0.78 cm LV wilson. diameter/BSA (cm/m^2): 2.7 LV sys. diameter/BSA (cm/m^2): 1.7 LA A2 area: 20.4 cm2 RA long axis: 5.5 cm LA A4 area: 18.4 cm2 RA area: 15.4 cm2 LA length (vol): 5.2 cm RA vol: 36.7 ml LA vol: 61.6 ml RA : 19.1 ml/m2 LA vol index: 32.0 ml/m2 IVC diam: 1.0 cm RVD1 (basal): 4.9 cm TAPSE: 1.6 cm Doppler Measurements & Calculations Ao V2 max: 263.8 cm/sec LVOT Max Lucas: 119.0 cm/sec Ao V2 mean: 166.7 cm/sec LV V1 max P.7 mmHg Ao max P.8 mmHg LV V1 VTI: 24.8 cm Ao mean P.6 mmHg WESLEY(I,D): 1.4 cm2 Ao V2 VTI: 62.2 cm WESLEY(V,D): 1.6 cm2 sev ratio: 0.40 WESLEY indexed to BSA (cm^2/m^2): 0.72 AI P1/2t: 809.3 msec AI dec slope: 131.6 cm/sec2 MV E max lucas: 92.0 cm/sec TR max lucas: 272.5 cm/sec MV A max lucas: 102.3 cm/sec TR max P.7 mmHg MV E/A: 0.90 PA V2 max: 122.5 cm/sec Med Peak E' Lucas: 8.2 cm/sec PA V2 mean: 82.4 cm/sec E/E' med: 11.2 PA mean P.1 mmHg Lat Peak E' Lucas: 11.8 cm/sec PA pr(Accel): -3.2 mmHg E/E' lat: 7.8 E/e' average: 9.5 MV dec time: 0.42 sec SV(LVOT): 85.8 ml Reading Physician:08:31 AM
== END ==
PROVIDERS: Family Provider Urology; PCP Internal Medicine; Referring Provider Specialist; Visit Provider Specialist
DX: I08.3 Combined rheumatic disorders of mitral, aortic and tricuspid valves (principal); Q24.9 Congenital malformation of heart, unspecified; I77.89 Other specified disorders of arteries and arterioles
CPT/HCPCS: 93306

== ENCOUNTER → 2021-08-09 08:44 | Outpatient (CLI) | payer OTHER, SELFPAY | PROVIDERS: Family Provider Urology; PCP Internal Medicine; Visit Provider Specialist | DX: N40.1 Benign prostatic hyperplasia with lower urinary tract symptoms (principal); N13.8 Other obstructive and reflux uropathy; R30.0 Dysuria; R97.20 Elevated prostate specific antigen [PSA]; Z80.42 Family history of malignant neoplasm of prostate | CPT/HCPCS: 51798; 81002; 87086; 99214 ==

== ENCOUNTER → 2021-08-21 08:24 | Outpatient (CLI) | payer MEDICARE, SELFPAY ==
[2021-08-21 10:26] LABS: Alanine Aminotransferase 34 IU/L (<50); Albumin 4.4 g/dL (3.5-5.0); Albumin Globulin Ratio 1.8 (1.0-2.8); Alkaline Phosphatase 58 U/L (38-126); Aspartate Aminotransferase 42 IU/L (17-59); BUN Creatinine Ratio 23.7 (6-22); Bilirubin Total 0.9 mg/dL (0.2-1.3); Blood Urea Nitrogen 18 mg/dL (9-20); Carbon Dioxide 28 mmol/L (22-32); Chloride 105 mmol/L (98-107); Estimated Glomerular Filt Rate > 60 mL/min (>60); Globulin 2.4 g/dL (1.7-4.1); Glucose 110 mg/dL (80-110); HEMOLYSIS < 15 (0-50); Potassium 4.4 mmol/L (3.4-5.1); Sodium 139 mmol/L (137-145); Total Protein 6.8 g/dL (6.3-8.2)
[2021-08-23 05:29] LABS: Lipoprotein (a) 150.7 nmol/L (<75.0)
[2021-08-23 08:09] LABS: Cholesterol, Total 160 mg/dL (100-199); HDL-Cholesterol 75 mg/dL (>39); HDL-Particle (Total) 41.8 umol/L (>=30.5); LDL Particle 971 nmol/L (<1000); LDL Size 20.4 nm (>20.5); LDL-Cholsterol 71 mg/dL (0-99); LP-IR Score <25 (<=45); Small LDL- Particle 415 nmol/L (<=527); Triglycerides 70 mg/dL (0-149)
== END ==
PROVIDERS: Family Provider Urology; PCP Internal Medicine; Referring Provider Specialist; Visit Provider Specialist
DX: I10 Essential (primary) hypertension (principal); E78.41 Elevated Lipoprotein(a); E78.00 Pure hypercholesterolemia, unspecified
CPT/HCPCS: 36415; 80053; 80061; 83695; 83704; 83735

== ENCOUNTER → 2021-09-18 09:11 | Outpatient (CLI) | payer OTHER, SELFPAY ==
[2021-09-18 10:58] LABS: Prostate Specific Antigen 2.48 ng/mL (0.10-4.00)
[2021-09-18 11:29] LABS: COVID19 -Nasal RAPID Negative (Negative)
== END ==
PROVIDERS: Surgery; Family Provider Urology; PCP Internal Medicine; Referring Provider Specialist; Visit Provider Specialist
DX: R97.20 Elevated prostate specific antigen [PSA] (principal); Z01.812 Encounter for preprocedural laboratory examination; Z20.822 Contact with and (suspected) exposure to COVID-19
CPT/HCPCS: 36415; 84153; 87635; C9803

== ENCOUNTER 2021-09-19 06:27 | Day surgery (SDC) | payer MEDICARE, SELFPAY ==
[2021-09-19 07:31] VITALS: BP 156/72; PULSE 55; RESP 16; TEMP 36.2; O2SAT 99
[2021-09-19] MEDS: LACTATED RINGERS 1,000 ML 200 ML IV (07:33)
--- NOTE | 2021-09-19 07:46 | PM.HP.1 ---
History of Present Illness History of Present Illness Date Patient Seen: 09/19/21 Time Patient Seen: 07:47 Chief complaint: COLONOSCOPY Narrative: The patient presents for colorectal screening. Previous colonoscopy 5 years ago normal. No personal or family history of colon cancer. On further history denies any recent gastrointestinal symptoms. No nausea, vomiting, abdominal pain, loss of appetite, unexplained weight loss, change in bowel habits, diarrhea, constipation, melena, hematochezia, or bright red blood per rectum. Patient History Medical History Anxiety BPH w urinary obs/LUTS CAD (coronary artery disease) Degenerative joint disease of knee Do not resuscitate Elevated PSA Essential hypertension Facet arthropathy, lumbar GERD (gastroesophageal reflux disease) Herniated nucleus pulposus, L2-3 left History of colonic polyps Hx of nephrolithotomy with removal of calculi Kidney stones Mixed hyperlipidemia Obesity Obstructive sleep apnea of adult Overweight Primary insomnia Primary osteoarthritis involving multiple joints Snoring Venous insufficiency Surgical History Hx of circumcision Polyp, vocal cord S/P CABG x 4 S/P left inguinal hernia repair S/P right inguinal hernia repair Status post Gilbert fundoplication Umbilical hernia Family & Social History Family History Father Congestive heart failure Blood disease Cancer Hyperlipidemia Hypertension Mother Heart disease Social History: household members spouse lives independently Yes caregiver/support person No Tobacco & Substance use: Smoking Status Former smoker alcohol intake current alcohol intake frequency 0-2 drinks per day Substance Use Type does not use Meds Home Medications and Allergies Home Medications Medication Instructions Recorded Confirmed Type aspirin 81 mg tablet,delayed 81 mg PO QDAY ##0 07/10/16 09/19/21 History release metoprolol tartrate 25 mg tablet 25 mg PO BID ##0 07/10/16 09/19/21 History omeprazole 20 mg capsule,delayed 20 mg PO QHS ##0 07/10/16 09/19/21 History release Resmed Airsense 10 CPAP #1 ea 07/03/18 07/24/21 History amlodipine 10 mg tablet 10 mg PO DAILY 07/24/21 09/19/21 History celecoxib 200 mg capsule 200 mg PO DAILY 07/24/21 09/19/21 History cholecalciferol (vitamin D3) 125 125 mcg PO DAILY 07/24/21 09/19/21 History mcg (5,000 unit) capsule coenzyme Q10 30 mg capsule (CoQ-10) 30 mg PO DAILY 07/24/21 09/19/21 History losartan 50 mg tablet 50 mg PO BID #0 tabs 07/24/21 09/19/21 History melatonin 5 mg tablet 5 mg PO BEDTIME PRN Sleep 07/24/21 09/19/21 History multivitamin 1 tab PO DAILY 07/24/21 09/19/21 History rosuvastatin 40 mg tablet 40 mg PO DAILY 07/24/21 09/19/21 History finasteride 5 mg tablet 5 mg PO DAILY #90 tabs 08/09/21 09/19/21 Rx tamsulosin 0.4 mg capsule 0.4 mg PO BEDTIME #90 caps 08/09/21 09/19/21 Rx Allergies Allergy/AdvReac Type Severity Reaction Status Date / Time No Known Drug Allergies Allergy Verified 08/09/21 08:39 Exam Vital Signs (past 8 hours): - 09/19/21 07:31 Temperature 97.1 F L Pulse Rate 55 L Respiratory Rate 16 Blood Pressure 156/72 H Pulse Oximetry 99 Oxygen Delivery Method Room Air Oxygen Delivery Method Room Air Narrative Exam Narrative: General adult male oriented no acute distress Chest nonlabored respirations Abdomen soft nontender nondistended Assessment & Plan Assessment & Plan narrative: The patient presents for colorectal screening. They have never had any previous examination for such. No personal or family history of colon cancer. On further history denies any recent gastrointestinal symptoms. No nausea, vomiting, abdominal pain, loss of appetite, unexplained weight loss, change in bowel habits, diarrhea, constipation, melena, hematochezia, or bright red blood per rectum. Time Spent With Patient Critical Care time: I spent a total of [] minutes of critical care time on this patient's care today; this time is exclusive of procedural time.
--- NOTE | 2021-09-19 07:56 | PM.OP.COLON ---
Operative Date/Time/Diagnoses Date of procedure: 09/19/21 Time of procedure: 08:13 Pre-op diagnosis: Personal history of colonic polyps Post-op diagnosis: same Procedure & Clinicians Study performed: Colonoscopy Same procedure as scheduled: Yes Indications: Personal history of colonic polyps Surgeon: Bj Gomez Procedure Notes Procedure in detail: Medications: Conscious sedation using 5 mg IV midazolam and 200mcg IV of fentanyl The history and physical was performed/updated and the patient is ASA class is 2. The procedure was discussed in detail with the patient. Potential risks complications including infection, bleeding, missed diagnosis, perforation, need for surgery, and were explained. Their questions were answered and informed consent was obtained. Patient was brought to the procedure room and placed standard monitoring equipment. The patient's vital signs were monitored continuously throughout the entire procedure. Prior to starting time-out was performed. The patient was placed in the left lateral recumbent position. Procedural sedation was administered. Examination began with a thorough inspection of the perianal area there was no evidence of fissures, fistulae, external hemorrhoids or cutaneous malignancy. The colonoscopy scope was then placed into the anal canal and was advanced to the cecum, which was identified by the ileocecal valve, the appendiceal orifice and the confluence of the taenia. The scope was then slowly withdrawn examining colon thoroughly in all directions, irrigating it of any residual stool. FINDINGS 1. No masses or polyps 2. Extensive diverticulosis The patient tolerated the procedure well. They will be discharged once criteria are met. The prep was of fair quality. The withdrawl time was 6 minutes. The sedation time was 19 minutes. Specimen(s): none sent Complications: none Impression: Diverticulosis Post-procedure Recommendations: High fiber diet Plan for aftercare: No further colonoscopy necessary Disposition: same day surgery
[2021-09-19] MEDS: MIDAZOLAM 5 MG/5 ML VIAL IV (08:17)
[2021-09-19] MEDS: fentaNYL 250 MCG/5 ML INJ IV (08:17)
[2021-09-19 08:18] VITALS: BP 121/61; PULSE 54; RESP 10; TEMP 36.4; O2SAT 92
[2021-09-19 08:24] VITALS: BP 123/62; PULSE 58; RESP 14; O2SAT 92
[2021-09-19 08:29] VITALS: BP 129/64; PULSE 54; RESP 14; O2SAT 95
[2021-09-19 08:34] VITALS: BP 126/49; PULSE 59; RESP 16; O2SAT 95
[2021-09-19 08:35] VITALS: BP 122/68; PULSE 57; RESP 20; O2SAT 94
== END 2021-09-19 09:00 | disposition home or self-care (01) ==
PROVIDERS: Family Provider Urology; PCP Internal Medicine; Referring Provider Surgery; Visit Provider Surgery
PROC: 0DJD8ZZ Inspection of Lower Intestinal Tract, Via Natural or Artificial Opening Endoscopic (ICD-10-PCS; CPT 45378; principal; 2021-09-19 07:45)
DX: Z12.11 Encounter for screening for malignant neoplasm of colon (principal); Z86.010 Personal history of colon polyps; K57.30 Diverticulosis of large intestine without perforation or abscess without bleeding
CPT/HCPCS: G0105; 99152; J2250; J3010

== ENCOUNTER → 2022-02-26 09:29 | Outpatient (CLI) | payer MEDICARE, SELFPAY ==
[2022-02-26 11:07] LABS: Alanine Aminotransferase 25 IU/L (<50); Alkaline Phosphatase 49 U/L (38-126); Aspartate Aminotransferase 27 IU/L (17-59); BUN Creatinine Ratio 24.7 (6-22); Blood Urea Nitrogen 20 mg/dL (9-20); Calcium 8.9 mg/dL (8.4-10.2); Carbon Dioxide 25 mmol/L (22-32); Chloride 105 mmol/L (98-107); Estimated Glomerular Filt Rate > 60 mL/min (>60); Glucose 102 mg/dL (80-110); HEMOLYSIS < 15 (0-50); Magnesium 1.9 mg/dL (1.6-2.3); Potassium 4.2 mmol/L (3.4-5.1); Sodium 140 mmol/L (137-145); Total Protein 6.5 g/dL (6.3-8.2)
[2022-02-26 11:41] LABS: Prostate Specific Antigen 2.01 ng/mL (0.10-4.00)
[2022-03-01 11:47] LABS: Cholesterol, Total 152 mg/dL (100-199); HDL-Cholesterol 74 mg/dL (>39); HDL-Particle (Total) 37.7 umol/L (>=30.5); LDL Particle 726 nmol/L (<1000); LDL Size 20.2 nm (>20.5); LDL-Cholsterol 66 mg/dL (0-99); LP-IR Score 29 (<=45); Small LDL- Particle 425 nmol/L (<=527); Triglycerides 59 mg/dL (0-149)
[2022-03-02 15:46] LABS: Albumin 4.1 g/dL (3.5-5.0); Albumin Globulin Ratio 1.7 (1.0-2.8); Globulin 2.4 g/dL (1.7-4.1)
== END ==
PROVIDERS: Specialist; Family Provider Urology; PCP Internal Medicine; Referring Provider Specialist; Visit Provider Physician Assistant Medical
DX: I10 Essential (primary) hypertension (principal); N40.1 Benign prostatic hyperplasia with lower urinary tract symptoms; E78.00 Pure hypercholesterolemia, unspecified; N13.8 Other obstructive and reflux uropathy; R97.20 Elevated prostate specific antigen [PSA]
CPT/HCPCS: 36415; 80053; 80061; 83704; 83735; 84153

== ENCOUNTER → 2022-07-10 15:25 | Outpatient (CLI) | payer MEDICARE, SELFPAY ==
--- NOTE | 2022-07-10 15:27 | DI.MRI.S_ITS ---
PROCEDURE: MR LUMBAR SPINE WO CON INDICATIONS: lumbar radic TECHNIQUE: Noncontrast sagittal T1 spin echo and T2 fast echo, coronal T2, sagittal STIR, and T2 fast spin echo through the lumbar spine. COMPARISON: [facility], , MR LUMBAR SPINE WO CON, 11/25/2019, 9:01. FINDINGS: Image quality: Excellent. Alignment and Curvature: 5 lumbar type vertebral bodies are present by plain film. 4 mm of retrolisthesis of L1 on L2. 5 mm of retrolisthesis of L2 on L3. 3 mm of retrolisthesis of L3 on L4 and L4 on L5. Bone Marrow: Marrow is of normal overall signal. No acute vertebral body compression fractures. Moderate reactive signal within the endplates adjacent to the L2-L3 intervertebral disc. Mild reactive signal adjacent to the remaining lumbar and lower thoracic intervertebral discs. Spinal Cord: Conus medullaris terminates at the mid L1 level. Visualized cord demonstrates normal signal and size. Paraspinous Soft Tissues: Left-sided parapelvic cysts versus hydronephrosis is unchanged. T12-L1: Mild disc height loss and desiccation. No significant canal or foraminal stenosis. No significant change. L1-L2: Moderate disc height loss and desiccation. Mild diffuse disc bulge. Mild canal stenosis. Mild bilateral foraminal stenosis. No significant change. L2-L3: Severe disc height loss and desiccation. Moderate diffuse disc bulge with superimposed left posterolateral protrusion. Mild facet and ligamentum flavum hypertrophy. Mild epidural lipomatosis. Mild canal stenosis. Mild left greater than right foraminal stenosis. Left lateral recess stenosis associated with left L3 nerve root compression. No significant change. L3-L4: Moderate disc desiccation. Mild disc height loss and diffuse disc bulge. Mild facet and ligamentum flavum hypertrophy. Mild canal stenosis. Mild bilateral foraminal stenosis. No significant change. L4-L5: Moderate disc height loss and desiccation. Mild diffuse disc bulge. Mild bilateral facet and ligamentum flavum hypertrophy. Mild canal stenosis. Moderate right and mild left foraminal stenosis. No significant change. L5-S1: Moderate disc height loss and desiccation. Mild diffuse disc bulge with small superimposed central protrusion. Mild bilateral facet hypertrophy. Mild canal stenosis. No foraminal stenosis. No significant change. IMPRESSION: 1. Multilevel degenerative disc and facet disease, as well as ligamentum flavum hypertrophy and epidural lipomatosis. 2. Mild multilevel canal stenosis. 3. Multilevel foraminal stenoses, worst at L4-L5 where there is moderate foraminal stenosis. 4. Left lateral recess stenosis at L2-L3 associated with left L3 nerve root compression. Recommend correlation with clinical symptoms to ascertain relevance of this finding. Dictated by: Juan Morrissey M.D. on 07/10/2022 at 16:50 Approved by: Juan Morrissey M.D. on 07/10/2022 at 16:53
== END ==
PROVIDERS: Family Provider Urology; PCP Internal Medicine; Referring Provider Physical Medicine & Rehabilitation; Visit Provider Physical Medicine & Rehabilitation
DX: M51.26 Other intervertebral disc displacement, lumbar region (principal); M47.816 Spondylosis without myelopathy or radiculopathy, lumbar region; M51.36 Other intervertebral disc degeneration, lumbar region; M48.061 Spinal stenosis, lumbar region without neurogenic claudication; M46.06 Spinal enthesopathy, lumbar region; E88.2 Lipomatosis, not elsewhere classified
CPT/HCPCS: 72148

== ENCOUNTER 2022-07-31 14:01 | Outpatient (CLI) | payer MEDICARE, SELFPAY ==
[2022-07-31] VITALS (8 sets, daily range): BP systolic 136–160; BP diastolic 67–84; PULSE 48–58; RESP 18–26; TEMP 36.2; O2SAT 95–100
--- NOTE | 2022-07-31 14:02 | DI.RAD.S_ITS ---
PROCEDURE: PAIN L INTERLAMINAR/CAUDAL INJ INDICATIONS: SPONDYLOSIS COMPARISON: [facility], XA, PAIN L INTERLAMINAR/CAUDAL INJ, 09/15/2020, 10:32. FINDINGS: Fluoroscopic spot filming was performed to verify placement of spinal needles at the L2-L3 level(s), as labeled on the films. Appropriate location(s) of the needle tip(s) was confirmed by injection of iodinated contrast. IMPRESSION: Intraprocedural images. Please see procedure note for details. Dictated by: Reji Zarate M.D. on 07/31/2022 at 17:45 Approved by: Reji Zarate M.D. on 07/31/2022 at 17:46
[2022-07-31] MEDS: MIDAZOLAM 2 MG/2 ML VIAL IV (15:00)
[2022-07-31] MEDS: BUPIVACAINE 0.25% (PF) VIAL 2 ML INJ (15:06)
[2022-07-31] MEDS: BETAMETHASONE 30 MG/5 ML MDV 6 MG INJ (15:06)
[2022-07-31] MEDS: DEXAMETHASONE 10 MG/ML VIAL 20 MG INJ (15:06)
[2022-07-31] MEDS: IOPAMIDOL 15 ML VIAL 3 ML INJ (15:07)
--- NOTE | 2022-07-31 15:15 | PM.PROC.IR.1 ---
Date/Time/Diagnoses Date of procedure: 07/31/22 Time of procedure: 15:15 Pre-procedure diagnosis: 1. HNP WITH RADICULAR FEATURES, 2. MULTILEVEL CENTRAL STENOSIS, Post-procedure diagnosis: same Procedure Notes Procedure: 1. FLUOROSCOPICALLY GUIDED CONTRAST CONTROLLED INTERLAMINAR EPIDURAL STEROID INJECTION - L2/3 Indications: Manny is referred by Dr. Joshi for treatment of Bilateral Foraminal Stenosis L>R LE symptoms. Physician: Julio James Total Fluoroscopy time (seconds): 10 Total sedation minutes: 10 Complications: none Procedure in detail & Post-procedure care: FINDINGS Multilevel Central Spinal Stenosis with Nerve Root Compression DESCRIPTION OF PROCEDURE Fluoroscopically guided, contrast-controlled L2/3 translaminar epidural steroid injection. Following review of allergy and review of potential side effects and complications, including, but not necessarily limited to, infection, allergic reaction, local tissue breakdown, temporary as well as permanent nerve injury, paralysis, stroke and possible , the patient indicated that the patient understood and agreed to proceed. An informed consent document was signed by the patient, witnessed by a nurse, and placed in the patient's chart. Additionally, other treatment options including modalities, medications, and physical therapy were reviewed with the patient. After review of previous anaesthesic history and IV conscious sedation the patient was deemed safe to proceed with today?s procedure with IV conscious sedation as ASA class II designation. Safety time-out was performed to confirm patient ID, procedure to be performed and site of procedure. IV sedation was accomplished with a combination of 2mg Versed administered by the RN after DO order, titrated to patient comfort during the course of the procedure while the patient remained responsive to all verbal commands. In the prone position, following sterile prep and drape of the lumbar region,the L2/3 translaminar space was identified fluoroscopically. The skin was anesthetized via a 25-gauge, 1.5-inch needle with 1% lidocaine solution. At this point, a 22-gauge short bevel spinal needle was atraumatically introduced and advanced under fluoroscopic guidance into the region of the L2/3 translaminar space. Depth was confirmed on lateral view. Radiological data, including multiple fluoroscopic views of the lumbar spine, reveal a spinal needle at the L2/3 translaminar space. Lateral views then show placement of the needle in the epidural space. Subsequent views show contrast material flowing superiorly and inferiorly in the epidural space. No vascular or intrathecal uptake is observed. At this point, using loss of resistance technique with saline and air, the epidural space was entered. This was confirmed following negative aspiration with injection of approximately 1.5 cc of Isovue 200, showing excellent epidural flow without vascular or intrathecal uptake. At this point, 1 cc of 1% lidocaine solution combined with 3cc or 20mg of dexamethasone and 6mg of betamethasone was injected without incident. The patient tolerated the procedure well without signs or symptoms of complications prior to transfer to the recovery area continued monitoring without incident. The patient was then transferred to the recovery area where they were observed for an appropriate period of time after the injection. The patient reported a VAS score of 6 prior to the procedure and a post-procedure VAS of 0. POST OP INSTRUCTIONS The patient was provided a Pain Log to continue to record their response to the target-specific procedure prior to follow-up visit with their referring physician. Additionally, specific post-injection care instructions and a contact number to our office were provided if concerns arise regarding possible complications associated with the procedure are suspected.
== END 2022-07-31 15:35 | disposition home or self-care (01) ==
LOC: RAD 14:02
PROVIDERS: Family Provider Urology; PCP Internal Medicine; Referring Provider Physical Medicine & Rehabilitation; Visit Provider Physical Medicine & Rehabilitation
DX: M51.16 Intervertebral disc disorders with radiculopathy, lumbar region (principal); M48.061 Spinal stenosis, lumbar region without neurogenic claudication
CPT/HCPCS: 62323; 99152; J0702; J1100; J2250; J3490

== ENCOUNTER 2022-08-06 10:45 | Emergency (ER) | payer MEDICARE, SELFPAY ==
[2022-08-06 10:45] VITALS: BP 159/73; PULSE 68; RESP 16; TEMP 36.9; O2SAT 99; BMI 29.8
--- NOTE | 2022-08-06 10:58 | DI.CT.S_ITS ---
PROCEDURE: CT ABDOMEN PELVIS W CON INDICATIONS: LLQ pain TECHNIQUE: After the administration of intravenous contrast, axial sections acquired from the lung bases to the pubic symphysis. Coronal and sagittal reformats were performed. For radiation dose reduction, the following was used: automated exposure control, adjustment of mA and/or kV according to patient size. COMPARISON: None. FINDINGS: Image quality: Excellent. Lung bases: Small hiatal hernia. Heart: No significant findings. ABDOMEN: Liver: Unremarkable. Gallbladder: Unremarkable. Biliary ducts: Unremarkable. Pancreas: Unremarkable. Spleen: Unremarkable. Adrenal Glands: Unremarkable. Kidneys and Ureters: Renal sinus cysts. Stomach and Bowel: Sigmoid colonic wall thickening in the presence of diverticula. No pericolonic fat stranding. Peritoneum: No abnormal intraperitoneal fluid. No free air. Ventral Wall: Umbilical hernia containing fat with associated fat stranding. Abdominal Nodes: No retroperitoneal or mesenteric adenopathy by size criteria. Vessels: Aorta and inferior vena cava are normal in size. PELVIS: Pelvic Organs: Unremarkable. Bladder: Unremarkable. Pelvic Nodes: No enlarged lymph nodes. Miscellaneous: Left inguinal hernia containing fat. Bones: Grade 1 retrolisthesis L2 on L3, with opposing endplate sclerosis at this level.. IMPRESSION: Sigmoid colonic wall thickening without associated pericolonic fat stranding, in the presence of colonic diverticula. Findings suggest chronic or resolving diverticulitis. Colitis is also a consideration, but less likely. Umbilical hernia containing inflamed fat. Dictated by: Abraham Osorio M.D. on 08/06/2022 at 12:03 Approved by: Abraham Osoroi M.D. on 08/06/2022 at 12:07
--- NOTE | 2022-08-06 11:00 | ED.ABDPAIN ---
HPI - Abdominal Pain <Mason Carbajal PA-C - Last Filed: 08/06/22 13:25> General Chief Complaint: Abdominal Pain Stated Complaint: diverticulitus Time Seen by Provider: 08/06/22 10:49 Source: patient and family Mode of arrival: Ambulatory History of Present Illness HPI narrative: 81-year-old with past medical history hypertension, hyperlipidemia, CAD, obstructive sleep apnea, BPH, osteoarthritis, lumbar radiculopathy presents to the ED with 4 days of left lower quadrant pain and diarrhea. Patient denies hematochezia, melena, nausea, vomiting, fever, chills, chest pain, shortness of breath, flank pain, dysuria, urinary frequency, urinary urgency, lightheadedness, dizziness, syncope. Patient states he has a history of diverticulitis, has not had any complications from it. Patient states that the pain is intermittent, comes and goes. Current pain level in the ED is to, patient declines pain medications. Related Data Home Medications Medication Instructions Recorded Confirmed aspirin 81 mg tablet,delayed 81 mg PO QDAY ##0 07/10/16 07/25/22 release metoprolol tartrate 25 mg tablet 25 mg PO BID ##0 07/10/16 07/25/22 Resmed Airsense 10 CPAP #1 ea 07/03/18 07/25/22 amlodipine 10 mg tablet 10 mg PO DAILY 07/24/21 07/25/22 cholecalciferol (vitamin D3) 125 125 mcg PO DAILY 07/24/21 07/25/22 mcg (5,000 unit) capsule coenzyme Q10 30 mg capsule (CoQ-10) 30 mg PO DAILY 07/24/21 07/25/22 losartan 50 mg tablet 50 mg PO BID #0 tabs 07/24/21 07/25/22 melatonin 5 mg tablet 5 mg PO BEDTIME PRN Sleep 07/24/21 07/25/22 multivitamin 1 tab PO DAILY 07/24/21 07/25/22 rosuvastatin 40 mg tablet 40 mg PO DAILY 07/24/21 07/25/22 Previous Rx's Medication Instructions Recorded tamsulosin 0.4 mg capsule 0.4 mg PO BEDTIME #90 caps 08/09/21 celecoxib 200 mg capsule See Rx Instructions .Route 12/07/21 .COMPLEX #90 caps fluticasone propionate 50 1 spray intranasal DAILY #16 grams 12/11/21 mcg/actuation nasal spray,suspension omeprazole 20 mg capsule,delayed 20 mg PO QHS #90 caps 04/09/22 release gabapentin 300 mg capsule 300 mg PO BID PRN nerve pain #60 07/02/22 caps methylprednisolone 4 mg tablets in See Rx Instructions PO PER PKG DIR 07/25/22 a dose pack (Medrol (Ike)) radiculopathy #21 ea ciprofloxacin HCl 500 mg tablet 500 mg PO Q12H 5 days #10 tabs 08/06/22 metronidazole 500 mg tablet 500 mg PO Q8H 5 days #15 tabs 08/06/22 Allergies Allergy/AdvReac Type Severity Reaction Status Date / Time No Known Drug Allergies Allergy Verified 07/25/22 11:19 Review of Systems <Mason Carbajal PA-C - Last Filed: 08/06/22 13:25> Review of Systems ROS Unobtainable: All systems reviewed & are unremarkable except as noted in HPI and below Constitutional Constitutional: Denies chills, Denies fatigue, Denies fever(s), Denies frequent falls, Denies lethargy and Denies weakness Eyes Eyes: Denies change in vision, Denies eye discharge, Denies irritation and Denies loss of vision ENT Ears, Nose, Mouth, and Throat: Denies change in voice, Denies dizziness, Denies neck pain, Denies sore throat and Denies throat swelling Cardiovascular Cardiovascular: Denies chest pain, Denies irregular heart rhythm, Denies lightheadedness, Denies palpitations, Denies dyspnea, Denies dyspnea on exertion and Denies orthopnea Respiratory Respiratory: Denies cough, Denies dyspnea, Denies dyspnea on exertion and Denies wheezing Gastrointestinal Gastrointestinal: Reports abdominal pain, Denies change in bowel habits, Reports diarrhea, Denies nausea and Denies vomiting Genitourinary Genitourinary: Denies hematuria, Denies flank pain, Denies urinary incontinence and Denies urinary urgency Musculoskeletal Musculoskeletal: Denies back pain, Denies muscle weakness, Denies neck pain, Denies numbness and Denies tingling Integumentary/Breasts Skin/Breast: Denies pruritus, Denies erythema, Denies rash and Denies wounds Neurologic Neurologic: Denies behavioral changes, Denies confusion, Denies dizziness, Denies frequent falls, Denies loss of vision, Denies numbness, Denies tingling and Denies weakness Psychiatric Psychiatric: Denies anxiety, Denies behavioral changes, Denies confusion, Denies depression, Denies homicidal ideation and Denies suicidal ideation Endocrine Endocrine: Denies fatigue, Denies flushing and Denies palpitations Hematologic/Lymphatic Hematologic/Lymphatic: Denies easy bruising Allergic/Immunologic Allergic/Immunologic: Denies urticaria, Denies throat swelling and Denies wheezing Patient History <Mason Carbajal PA-C - Last Filed: 08/06/22 13:25> Medical History Anxiety BPH w urinary obs/LUTS CAD (coronary artery disease) Chicken pox Chronic back pain Colon polyps Degenerative joint disease of knee Do not resuscitate Essential hypertension Facet arthropathy, lumbar Family history of prostate cancer GERD (gastroesophageal reflux disease) Herniated nucleus pulposus, L2-3 left History of colonic polyps Hx of nephrolithotomy with removal of calculi Kidney stones Lumbar radiculopathy Measles Medicare annual wellness visit, initial Mixed hyperlipidemia Mumps Obesity Obstructive sleep apnea of adult Overweight Polio Primary insomnia Primary osteoarthritis involving multiple joints Restless leg syndrome Snoring Umbilical hernia without obstruction or gangrene Venous insufficiency Surgical History Hx of circumcision Polyp, vocal cord S/P CABG x 4 S/P left inguinal hernia repair S/P right inguinal hernia repair Status post Gilbert fundoplication Umbilical hernia Family History Father Congestive heart failure Blood disease Cancer Hyperlipidemia Hypertension Stroke Mother Heart disease Stroke Brother Hypertension Hyperlipidemia Social History marital status: details: rambo Real, lives in [facility] number of children: 4 household members: spouse lives independently: Yes caregiver/support person: No housing: house Smoking Status: Former smoker alcohol intake: current caffeine: Yes Type(s) of exercise: independent ambulation frequency: daily Smoking Status: Former smoker alcohol intake frequency: 0-2 drinks per day Substance Use Type: does not use Exam <Mason Carbajal PA-C - Last Filed: 08/06/22 13:25> Narrative Exam Narrative: Const General:?cooperative, healthy appearing and comfortable HENME Head:?normal to inspection Ears:?hearing grossly normal bilaterally Nose:?external nose normal Face and sinus:?normal facial exam and sinuses nontender Mouth:?oral mucosae normal Throat:?posterior oropharynx normal Eyes General:?appearance normal, both eyes and all related structures Neck Neck:?normal visual inspection and no lymphadenopathy noted Resp Effort & Inspection:?normal respiratory effort Auscultation:?clear to auscultation bilaterally Cardio Rate:?regular rate Rhythm:?regular rhythm GI Abdomen is soft, nondistended, tender to palpation in the left lower quadrant. There is no CVA tenderness. Neuro General:?patient alert, patient awake and patient oriented x3 Initial Vital Signs Initial Vital Signs: Vital Signs Temperature 98.4 F 08/06/22 10:45 Pulse Rate 68 08/06/22 10:45 Respiratory Rate 16 08/06/22 10:45 Blood Pressure 159/73 H 08/06/22 10:45 Pulse Oximetry 99 08/06/22 10:45 Oxygen Delivery Method Room Air 08/06/22 10:45 <Ovidio Lewis DO - Last Filed: 08/06/22 14:12> Initial Vital Signs Initial Vital Signs: Vital Signs Temperature 98.4 F 08/06/22 10:45 Pulse Rate 68 08/06/22 10:45 Respiratory Rate 16 08/06/22 10:45 Blood Pressure 159/73 H 08/06/22 10:45 Pulse Oximetry 99 08/06/22 10:45 Oxygen Delivery Method Room Air 08/06/22 10:45 Course <Mason Carbajal PA-C - Last Filed: 08/06/22 13:25> Orders Ordered: ED Orders 08/06/22 10:54 CBC Auto Diff [Complete Blood Count AUTO DIFF] Stat CMP [Comprehensive Metabolic Panel] Stat Lipase Stat 08/06/22 10:58 CT abdomen pelvis w con Stat Vital Signs Vital signs: Vital Signs - 8 hr 08/06/22 10:45 08/06/22 11:49 08/06/22 11:49 Temperature 98.4 F Pulse Rate 68 63 Respiratory Rate 16 Blood Pressure 159/73 H 146/68 H Pulse Oximetry 99 98 Oxygen Delivery Method Room Air 08/06/22 12:00 08/06/22 12:00 08/06/22 12:42 Temperature Pulse Rate 61 Respiratory Rate 14 Blood Pressure 132/55 L 139/74 Pulse Oximetry 95 Oxygen Delivery Method Room Air 08/06/22 12:42 Temperature Pulse Rate 66 Respiratory Rate Blood Pressure Pulse Oximetry 97 Oxygen Delivery Method <Ovidio Lewis DO - Last Filed: 08/06/22 14:12> Orders Ordered: ED Orders 08/06/22 10:54 CBC Auto Diff [Complete Blood Count AUTO DIFF] Stat CMP [Comprehensive Metabolic Panel] Stat Lipase Stat 08/06/22 10:58 CT abdomen pelvis w con Stat Vital Signs Vital signs: Vital Signs - 8 hr 08/06/22 10:45 08/06/22 11:49 08/06/22 11:49 Temperature 98.4 F Pulse Rate 68 63 Respiratory Rate 16 Blood Pressure 159/73 H 146/68 H Pulse Oximetry 99 98 Oxygen Delivery Method Room Air 08/06/22 12:00 08/06/22 12:00 08/06/22 12:42 Temperature Pulse Rate 61 Respiratory Rate 14 Blood Pressure 132/55 L 139/74 Pulse Oximetry 95 Oxygen Delivery Method Room Air 08/06/22 12:42 Temperature Pulse Rate 66 Respiratory Rate Blood Pressure Pulse Oximetry 97 Oxygen Delivery Method MDM - Abdominal Pain <Mason Carbajal PA-C - Last Filed: 08/06/22 13:25> Lab Data 08/06/22 10:54 08/06/22 10:54 Labs: Lab Results 08/06/22 08/06/22 Range/Units 10:54 10:54 WBC 11.6 H (4.5-11.0) X10^3/uL RBC 4.37 L (4.5-5.9) X10^6/uL Hgb 13.6 (13.5-17.5) g/dL Hct 40.2 L (41-53) % MCV 91.9 (80-100) fL MCH 31.2 (26-34) PG MCHC 34.0 (30-36) % RDW 14.3 (11.6-14.8) % Plt Count 140 L (150-400) X10^3/uL Neut % (Auto) 81.0 H (50-75) % Lymph % (Auto) 9.7 L (25-40) % Hernando % (Auto) 8.2 (3-14) % Eos % (Auto) 0.7 L (2-4) % Baso % (Auto) 0.4 (0-2) % Neut # (Auto) 9400 H (6749-3492) /uL Lymph # (Auto) 1100 (4822-5041) /uL Hernando # (Auto) 1000 H (0-900) /uL Eos # (Auto) 100 (0-450) /uL Baso # (Auto) 0 (0-100) /uL Sodium 134 L (137-145) mmol/L Potassium 3.8 (3.4-5.1) mmol/L Chloride 104 (98-107) mmol/L Carbon Dioxide 21 L (22-32) mmol/L BUN 19 (9-20) mg/dL Creatinine 0.90 (0.66-1.25) mg/dL Estimated GFR > 60 (>60) mL/min BUN/Creatinine Ratio 21.1 (6-22) Glucose 106 (80-110) mg/dL Calcium 8.4 (8.4-10.2) mg/dL Total Bilirubin 1.0 (0.2-1.3) mg/dL AST 22 (17-59) IU/L ALT 29 (<50) IU/L Alkaline Phosphatase 65 (38-126) U/L Total Protein 6.9 (6.3-8.2) g/dL Albumin 4.0 (3.5-5.0) g/dL Globulin 2.9 (1.7-4.1) g/dL Albumin/Globulin Ratio 1.4 (1.0-2.8) Lipase 112 (23-300) U/L Point of care testing: Urine Dip Bedside Urine Glucose Negative Bedside Urine Bilirubin - Negative Bedside Urine Ketone ++ 40 Urine Specific Mcdonald 1.010 Bedside Urine Occult Blood - Negative Bedside Urine pH 6.0 Bedside Urine Protein - Negative Bedside Urine Urobilinogen - Negative Bedside Urine Nitrite - Negative Bedside Urine Leukocytes - Negative Esterase MDM Narrative Medical decision making narrative: 81-year-old with past medical history hypertension, hyperlipidemia, CAD, obstructive sleep apnea, BPH, osteoarthritis, lumbar radiculopathy presents to the ED with 4 days of left lower quadrant pain and diarrhea. Concern for diverticulitis versus UTI versus pyelonephritis versus gastroenteritis versus other intra-abdominal pathology versus other. Will obtain labs, lipase, UA, CT abdomen pelvis. Patient's pain level is at a 2 currently, declines pain medications. Labs and UA without acute findings. CT abdomen pelvis shows possible chronic or resolving diverticulitis versus colitis. Discussed findings with patient. Will start patient on antibiotics. Recommend clear liquid diet for the next 2 days, slowly advancing diet to normal over the next several days. Recommend follow-up with PCP in 3-5 days. ED return precautions were discussed with patient. Patient verbalized understanding. Medical records reviewed: Yes <Ovidio Lewis, DO - Last Filed: 08/06/22 14:12> Lab Data Labs: Lab Results 08/06/22 08/06/22 Range/Units 10:54 10:54 WBC 11.6 H (4.5-11.0) X10^3/uL RBC 4.37 L (4.5-5.9) X10^6/uL Hgb 13.6 (13.5-17.5) g/dL Hct 40.2 L (41-53) % MCV 91.9 (80-100) fL MCH 31.2 (26-34) PG MCHC 34.0 (30-36) % RDW 14.3 (11.6-14.8) % Plt Count 140 L (150-400) X10^3/uL Neut % (Auto) 81.0 H (50-75) % Lymph % (Auto) 9.7 L (25-40) % Hernando % (Auto) 8.2 (3-14) % Eos % (Auto) 0.7 L (2-4) % Baso % (Auto) 0.4 (0-2) % Neut # (Auto) 9400 H (2545-8333) /uL Lymph # (Auto) 1100 (4355-5302) /uL Hernando # (Auto) 1000 H (0-900) /uL Eos # (Auto) 100 (0-450) /uL Baso # (Auto) 0 (0-100) /uL Sodium 134 L (137-145) mmol/L Potassium 3.8 (3.4-5.1) mmol/L Chloride 104 (98-107) mmol/L Carbon Dioxide 21 L (22-32) mmol/L BUN 19 (9-20) mg/dL Creatinine 0.90 (0.66-1.25) mg/dL Estimated GFR > 60 (>60) mL/min BUN/Creatinine Ratio 21.1 (6-22) Glucose 106 (80-110) mg/dL Calcium 8.4 (8.4-10.2) mg/dL Total Bilirubin 1.0 (0.2-1.3) mg/dL AST 22 (17-59) IU/L ALT 29 (<50) IU/L Alkaline Phosphatase 65 (38-126) U/L Total Protein 6.9 (6.3-8.2) g/dL Albumin 4.0 (3.5-5.0) g/dL Globulin 2.9 (1.7-4.1) g/dL Albumin/Globulin Ratio 1.4 (1.0-2.8) Lipase 112 (23-300) U/L Point of care testing: Urine Dip Bedside Urine Glucose Negative Bedside Urine Bilirubin - Negative Bedside Urine Ketone ++ 40 Urine Specific Mcdonald 1.010 Bedside Urine Occult Blood - Negative Bedside Urine pH 6.0 Bedside Urine Protein - Negative Bedside Urine Urobilinogen - Negative Bedside Urine Nitrite - Negative Bedside Urine Leukocytes - Negative Esterase Discharge Plan Departure Patient Disposition: Home Clinical Impression: Diverticulitis Instructions: DI for Diverticulitis Activity Restrictions/Additional Instructions: You were evaluated in the ED today for abdominal pain and diarrhea. Your labs and urine were normal. Your CT abdomen pelvis does show either a chronic diverticulitis or a diverticulitis that is resolving. You are being started on antibiotics for it. Please complete the antibiotics as prescribed. It is also advised that you follow a clear liquid diet for the next 2 days, slowly advancing the diet to a regular diet. Please follow-up with your PCP in 3-5 days. Return to the ED if you have worsening symptoms, you are unable to keep down any fluids. Prescriptions: New metronidazole 500 mg tablet 500 mg PO Q8H 5 Days Qty: 15 0RF ciprofloxacin HCl 500 mg tablet 500 mg PO Q12H 5 Days Qty: 10 0RF No Action aspirin 81 MG tablet,delayed release (DR/EC) 81 mg PO QDAY Qty: 0 metoprolol tartrate 25 MG tablet 25 mg PO BID Qty: 0 losartan 50 mg tablet 50 mg PO BID Qty: 0 celecoxib 200 mg capsule See Rx Instructions .ROUTE .COMPLEX Qty: 90 2RF Hold Instructions: Home Medication placed on hold at Doctor's office Dose Instruction: TAKE 1 CAPSULES (200 MG) BY MOUTH DAILY WITH FOOD. Rx Instructions: TAKE 1 CAPSULES (200 MG) BY MOUTH DAILY WITH FOOD. gabapentin 300 mg capsule 300 mg PO BID PRN (Reason: nerve pain) Qty: 60 1RF Rx Instructions: START WITH 1-300MG AT NIGHT FOR 3 NIGHTS AND THEN INCREASE TO 2-300 MG. CAN BE SEDATING omeprazole 20 mg capsule,delayed release(DR/EC) 20 mg PO QHS Qty: 90 3RF amlodipine 10 mg tablet 10 mg PO DAILY rosuvastatin 40 mg tablet 40 mg PO DAILY cholecalciferol (vitamin D3) 125 mcg (5,000 unit) capsule 125 mcg PO DAILY multivitamin Tablet 1 tab PO DAILY coenzyme Q10 [CoQ-10] 30 mg capsule 30 mg PO DAILY melatonin 5 mg tablet 5 mg PO BEDTIME PRN (Reason: Sleep) methylprednisolone [Medrol (Ike)] 4 mg tablets,dose pack See Rx Instructions PO PER PKG DIR Qty: 21 0RF Rx Instructions: PO PER PKG DIR (DME) Resmed Airsense 10 CPAP Qty: 1 Dose Instruction: As directed Patient Comments: Pressure: 9-16 cmH2O DME: [facility] Rx Instructions: As directed fluticasone propionate 50 mcg/actuation spray,suspension 1 spray intranasal DAILY Qty: 16 0RF Rx Instructions: administer into each nostril tamsulosin 0.4 mg capsule 0.4 mg PO BEDTIME Qty: 90 3RF Referrals: Lucio Joshi MD [Primary Care Provider] - Stand Alone Forms: Patient Portal/API <Ovidio Lewis, DO - Last Filed: 08/06/22 14:12> [facility] Dr Lewis Co-Sign Statement: I was available for consultation during this patient's emergency department visit. This chart is signed by myself for administrative purposes only. I did not have direct contact with this patient during this visit. They were seen independently by the APC.
[2022-08-06 11:13] LABS: Add Manual Diff / Slide Review NO; Basophils Absolute Auto 0 /uL (0-100); Basophils Percent Auto 0.4 % (0-2); Eosinophils Absolute Auto 100 /uL (0-450); Eosinophils Percent Auto 0.7 % (2-4); Hematocrit 40.2 % (41-53); Hemoglobin 13.6 g/dL (13.5-17.5); Lymphocytes Absolute Auto 1100 /uL (1100-4500); Lymphocytes Percent Auto 9.7 % (25-40); Mean Corpuscular Hemoglobin 31.2 PG (26-34); Mean Corpuscular Volume 91.9 fL (80-100); Monocytes Absolute Auto 1000 /uL (0-900); Monocytes Percent Auto 8.2 % (3-14); Neutrophils Absolute Auto 9400 /uL (1500-7000); Platelet Count 140 X10^3/uL (150-400); Red Blood Cell Count 4.37 X10^6/uL (4.5-5.9); Red Cell Distribution Width 14.3 % (11.6-14.8); White Blood Cell Count 11.6 X10^3/uL (4.5-11.0)
[2022-08-06 11:17] LABS: Alanine Aminotransferase 29 IU/L (<50); Albumin Globulin Ratio 1.4 (1.0-2.8); Alkaline Phosphatase 65 U/L (38-126); Aspartate Aminotransferase 22 IU/L (17-59); BUN Creatinine Ratio 21.1 (6-22); Blood Urea Nitrogen 19 mg/dL (9-20); Calcium 8.4 mg/dL (8.4-10.2); Carbon Dioxide 21 mmol/L (22-32); Chloride 104 mmol/L (98-107); Estimated Glomerular Filt Rate > 60 mL/min (>60); Globulin 2.9 g/dL (1.7-4.1); Glucose 106 mg/dL (80-110); HEMOLYSIS < 15 (0-50); Lipase 112 U/L (23-300); Potassium 3.8 mmol/L (3.4-5.1); Sodium 134 mmol/L (137-145); Total Protein 6.9 g/dL (6.3-8.2)
[2022-08-06 11:49] VITALS: BP 146/68; PULSE 63; O2SAT 98
[2022-08-06 12:00] VITALS: BP 132/55; PULSE 61; RESP 14; O2SAT 95
[2022-08-06 12:42] VITALS: BP 139/74; PULSE 66; O2SAT 97
== END 2022-08-06 12:47 | disposition home or self-care (01) ==
PROVIDERS: Emergency Provider Student in an Organized Health Care Education/Training Program; Family Provider Urology; PCP Internal Medicine
DX: K57.92 Diverticulitis of intestine, part unspecified, without perforation or abscess without bleeding (principal); R19.7 Diarrhea, unspecified; Z79.899 Other long term (current) drug therapy
CPT/HCPCS: 36415; 74177; 80053; 81003; 83690; 85025; 99284; Q9967

== ENCOUNTER → 2022-09-17 08:45 | Outpatient (CLI) | payer MEDICARE, SELFPAY ==
[2022-09-17 11:47] LABS: Alanine Aminotransferase 28 IU/L (<50); Albumin Globulin Ratio 1.5 (1.0-2.8); Alkaline Phosphatase 53 U/L (38-126); Aspartate Aminotransferase 31 IU/L (17-59); BUN Creatinine Ratio 20.3 (6-22); Bilirubin Total 0.5 mg/dL (0.2-1.3); Blood Urea Nitrogen 14 mg/dL (9-20); Calcium 9.1 mg/dL (8.4-10.2); Carbon Dioxide 26 mmol/L (22-32); Chloride 108 mmol/L (98-107); Cholesterol 140 mg/dL (140-199); Estimated Glomerular Filt Rate > 60 mL/min (>60); Globulin 2.6 g/dL (1.7-4.1); Glucose 102 mg/dL (80-110); HDL Cholesterol 59 mg/dL (40-60); HEMOLYSIS 18 (0-50); LDL Cholesterol Calculated 68 mg/dL (<100); Magnesium 1.9 mg/dL (1.6-2.3); Potassium 4.8 mmol/L (3.4-5.1); Sodium 141 mmol/L (137-145); Total Protein 6.6 g/dL (6.3-8.2); Triglycerides 65 mg/dL (35-150)
== END ==
PROVIDERS: Family Provider Urology; PCP Internal Medicine; Referring Provider Specialist; Visit Provider Specialist
DX: I10 Essential (primary) hypertension (principal); E78.00 Pure hypercholesterolemia, unspecified
CPT/HCPCS: 36415; 80053; 80061; 83735

== ENCOUNTER → 2022-09-17 15:10 | Outpatient (CLI) | payer MEDICARE, SELFPAY ==
--- NOTE | 2022-09-17 15:11 | DI.RAD.S_ITS ---
PROCEDURE: XR HIP W PEL IF DONE SILVIA MIN 4V INDICATIONS: Right hip pain TECHNIQUE: AP pelvis with lateral view(s) of the right hip(s). COMPARISON: None. FINDINGS: Bones: No fractures or dislocations. Pelvic ring appears intact. No suspicious bony lesions. Severe right hip joint degeneration and mild left hip joint degeneration. Soft tissues: The visualized bowel gas pattern is normal. No suspicious soft tissue calcifications. IMPRESSION: Severe osteoarthritis of the right hip. Dictated by: Geovany Hidalgo M.D. on 09/17/2022 at 16:44 Approved by: Geovany Hidalgo M.D. on 09/17/2022 at 16:45
== END ==
PROVIDERS: Family Provider Urology; PCP Internal Medicine; Referring Provider Physical Medicine & Rehabilitation; Visit Provider Physical Medicine & Rehabilitation
DX: M16.0 Bilateral primary osteoarthritis of hip (principal); M51.16 Intervertebral disc disorders with radiculopathy, lumbar region
CPT/HCPCS: 73522; 99214

== ENCOUNTER 2022-09-25 08:38 | Outpatient (CLI) | payer MEDICARE, SELFPAY ==
[2022-09-25] VITALS (8 sets, daily range): BP systolic 116–156; BP diastolic 62–74; PULSE 52–70; RESP 16–22; TEMP 36.1; O2SAT 95–100
--- NOTE | 2022-09-25 08:39 | DI.RAD.S_ITS ---
PROCEDURE: PAIN L/S TRANSFORAMINAL INJECT INDICATIONS: Right L4/5 transforaminal MIKI COMPARISON: [facility], , PAIN L/S TRANSFORAMINAL INJECT, 12/08/2019, 15:10. FINDINGS: Fluoroscopic spot filming was performed to verify placement of a spinal needle at the L4-L5 level, as labeled on the films. Appropriate location of the needle tip was confirmed by injection of iodinated contrast. IMPRESSION: Intraprocedural examination within normal limits. Dictated by: Ronal Gandhi M.D. on 09/25/2022 at 19:19 Approved by: Ronal Gandhi M.D. on 09/25/2022 at 19:19
[2022-09-25] MEDS: MIDAZOLAM 2 MG/2 ML VIAL IV (10:08)
[2022-09-25] MEDS: BETAMETHASONE 30 MG/5 ML MDV 6 MG INJ (10:16)
[2022-09-25] MEDS: DEXAMETHASONE 10 MG/ML VIAL INJ (10:16)
[2022-09-25] MEDS: IOPAMIDOL 15 ML VIAL 3 ML INJ (10:16)
[2022-09-25] MEDS: BUPIVACAINE 0.25% (PF) VIAL 2 ML INJ (10:17)
--- NOTE | 2022-09-25 10:32 | P.PCN_ITS ---
Date/Time/Diagnoses Date of procedure: 09/25/22 Time of procedure: 10:32 Pre-procedure diagnosis: 1. FORAMINAL STENOSIS WITH LE SYMPTOMS Post-procedure diagnosis: same Procedure Notes Procedure: 1. FLUOROSCOPICALLY GUIDED CONTRAST CONTROLLED TRANSFORAMINAL EPIDURAL STEROID INJECTION - RIGHT L4/5 TFESI Indications: Manny is referred by Dr. Joshi for treatment of Foraminal Stenosis with Right LE Symptoms Physician: Julio James Total Fluoroscopy time (seconds): 16 Total sedation minutes: 19 Complications: none Procedure in detail & Post-procedure care: FINDINGS Foraminal Nerve Root Compression secondary to disc disease and facet hypertrophy DESCRIPTION OF PROCEDURE Following review of allergy and review of potential side effects and complications, including, but not necessarily limited to, infection, allergic reaction, local tissue breakdown, stroke, temporary or permanent nerve injury, paralysis, and possible , the patient indicated that the patient understood and agreed to proceed. An informed consent document was signed by the patient, witnessed by a nurse, and placed in the patient's chart. Additionally, other treatment options including medications, modalities, and physical therapy were reviewed with the patient. After review of previous anaesthesic history and IV conscious sedation the patient was deemed safe to proceed with today?s procedure with IV conscious sedation as ASA class II designation. Safety time-out was performed to confirm patient ID, procedure to be performed and site of procedure. IV sedation was accomplished with a combination of 2mg of Versed was administered by the RN after DO order, titrated to patient comfort during the course of the procedure while the patient remained responsive to all verbal commands In the prone position following sterile prep and drape of the lumbar region, the right L4/5 posterior neuroforamen was identified fluoroscopically. The skin was anesthetized via a 25-gauge 1.5-inch needle with 1% lidocaine solution. At this point, a 25-gauge 3.5-inch spinal needle was atraumatically introduced and advanced under fluoroscopic guidance through the posterior right L4/5 neuroforamen to approximately the anterior aspect of the canal. Depth was confirmed on lateral view. Following negative aspiration, injection of approximately 1.5cc of Isovue 200 under live fluoroscopy in the AP view c onfirmed excellent flow along the nerve root, into the epidural space without vascular or intrathecal uptake observed Radiological data, including multiple fluoroscopic views of the lumbosacral spi ne, reveal a spinal needle at the right L4/5 posterior neuroforamen. Subsequent views show flow of contrast material flowing superiorly and inferiorly along the nerve root confirming epidural flow. Subsequently, a test dose of 1.5 cc of 1% lidocaine solution was administered and patient was observed for two minutes for signs or symptoms of complications, including abdominal pain, shortness of breath, bilateral upper or lower extremity weakness, nausea and vomiting, prior to steroid injection. At this point, a total of 2cc or 10mg of dexamethasone and 6mg of betamethasone was injected without incident. The procedure tolerated the procedure well without signs or symptoms of complications prior to transfer to the recovery area continued monitoring without incident. The patient was then transferred to the recovery area where they were observed for an appropriate time after the injection. The patient reported a VAS score of 7 prior to the procedure and a post- procedure VAS of 0. POST OP INSTRUCTIONS The patient was provided a Pain Log to continue to record their response to the target-specific procedure prior to follow-up visit with their referring physician. Additionally, specific post-injection care instructions and a contact number to our office were provided if concerns arise regarding possible complications associated with the procedure are suspected.
== END 2022-09-25 10:46 | disposition home or self-care (01) ==
PROVIDERS: Family Provider Urology; PCP Internal Medicine; Referring Provider Physical Medicine & Rehabilitation; Visit Provider Physical Medicine & Rehabilitation
DX: M48.061 Spinal stenosis, lumbar region without neurogenic claudication (principal); M51.16 Intervertebral disc disorders with radiculopathy, lumbar region; M47.26 Other spondylosis with radiculopathy, lumbar region
CPT/HCPCS: 64483; 99152; J0702; J1100; J2250; J3490

== ENCOUNTER → 2023-03-18 08:27 | Outpatient (CLI) | payer OTHER, SELFPAY ==
[2023-03-18 09:35] LABS: Alanine Aminotransferase 21 IU/L (<50); Albumin 4.1 g/dL (3.5-5.0); Albumin Globulin Ratio 1.7 (1.0-2.8); Alkaline Phosphatase 61 U/L (38-126); Aspartate Aminotransferase 27 IU/L (17-59); BUN Creatinine Ratio 20.3 (6-22); Bilirubin Total 0.8 mg/dL (0.2-1.3); Blood Urea Nitrogen 13 mg/dL (9-20); Calcium 9.4 mg/dL (8.4-10.2); Carbon Dioxide 26 mmol/L (22-32); Chloride 109 mmol/L (98-107); Estimated Glomerular Filt Rate > 60 mL/min (>60); Globulin 2.4 g/dL (1.7-4.1); Glucose 116 mg/dL (80-110); HEMOLYSIS < 15 (0-50); Magnesium 1.9 mg/dL (1.6-2.3); Potassium 4.5 mmol/L (3.4-5.1); Sodium 141 mmol/L (137-145); Total Protein 6.5 g/dL (6.3-8.2)
[2023-03-21 10:13] LABS: Cholesterol, Total 152 mg/dL (100-199); HDL-Cholesterol 77 mg/dL (>39); LDL Particle 529 nmol/L (<1000); LDL-Cholsterol 60 mg/dL (0-99); LP-IR Score <25 (<=45); Small LDL- Particle <90 nmol/L (<=527); Triglycerides 76 mg/dL (0-149)
== END ==
PROVIDERS: Family Provider Urology; PCP Internal Medicine; Referring Provider Specialist; Visit Provider Specialist
DX: E78.00 Pure hypercholesterolemia, unspecified; I10 Essential (primary) hypertension
CPT/HCPCS: 36415; 80053; 80061; 83704; 83735; 84153

== ENCOUNTER → 2023-12-12 09:22 | Outpatient (CLI) | payer MEDICARE, SELFPAY ==
[2023-12-12 10:45] LABS: Hemoglobin A1C% w Est Avg Glu 6.4 % (4.0-6.0)
[2023-12-12 10:46] LABS: BUN Creatinine Ratio 18.5 (6-22); Blood Urea Nitrogen 15 mg/dL (9-20); Calcium 9.2 mg/dL (8.4-10.2); Carbon Dioxide 26 mmol/L (22-32); Chloride 106 mmol/L (98-107); Estimated Glomerular Filt Rate > 60 mL/min (>60); Glucose 116 mg/dL (80-110); HEMOLYSIS < 15 (0-50); Potassium 4.3 mmol/L (3.4-5.1); Sodium 139 mmol/L (137-145)
== END ==
PROVIDERS: Family Provider Urology; PCP Internal Medicine; Referring Provider Internal Medicine; Visit Provider Internal Medicine
DX: R73.01 Impaired fasting glucose (principal); I25.810 Atherosclerosis of coronary artery bypass graft(s) without angina pectoris; I10 Essential (primary) hypertension; E78.2 Mixed hyperlipidemia; I87.2 Venous insufficiency (chronic) (peripheral); K21.9 Gastro-esophageal reflux disease without esophagitis; G47.33 Obstructive sleep apnea (adult) (pediatric); M15.9 Polyosteoarthritis, unspecified; N40.1 Benign prostatic hyperplasia with lower urinary tract symptoms; N13.8 Other obstructive and reflux uropathy; Z86.0100 Personal history of colon polyps, unspecified; Z96.641 Presence of right artificial hip joint; J30.89 Other allergic rhinitis; Z80.42 Family history of malignant neoplasm of prostate
CPT/HCPCS: 36415; 80048; 83036

== ENCOUNTER → 2024-04-06 08:01 | Outpatient (CLI) | payer MEDICARE, SELFPAY ==
[2024-04-06 08:57] LABS: Hematocrit 39.5 % (41-53); Hemoglobin 13.3 g/dL (13.5-17.5); Mean Corpuscular HGB Conc 33.7 % (30-36); Mean Corpuscular Hemoglobin 31.5 PG (26-34); Mean Corpuscular Volume 93.7 fL (80-100); Platelet Count 178 X10^3/uL (150-400); Red Blood Cell Count 4.21 X10^6/uL (4.5-5.9); Red Cell Distribution Width 13.5 % (11.6-14.8); White Blood Cell Count 5.4 X10^3/uL (4.5-11.0)
[2024-04-06 09:13] LABS: Alanine Aminotransferase 26 IU/L (<50); Albumin 4.3 g/dL (3.5-5.0); Alkaline Phosphatase 50 U/L (38-126); Aspartate Aminotransferase 32 IU/L (17-59); BUN Creatinine Ratio 17.1 (6-22); Bilirubin Total 0.8 mg/dL (0.2-1.3); Blood Urea Nitrogen 14 mg/dL (9-20); Calcium 9.1 mg/dL (8.4-10.2); Carbon Dioxide 24 mmol/L (22-32); Chloride 106 mmol/L (98-107); Estimated Glomerular Filt Rate > 60 mL/min (>60); Globulin 2.1 g/dL (1.7-4.1); Glucose 119 mg/dL (80-110); HEMOLYSIS < 15 (0-50); Magnesium 1.9 mg/dL (1.6-2.3); Potassium 4.4 mmol/L (3.4-5.1); Sodium 139 mmol/L (137-145); Total Protein 6.4 g/dL (6.3-8.2)
== END ==
PROVIDERS: Family Provider Urology; PCP Internal Medicine; Referring Provider Specialist; Visit Provider Specialist
DX: E78.00 Pure hypercholesterolemia, unspecified (principal); I10 Essential (primary) hypertension; I25.10 Atherosclerotic heart disease of native coronary artery without angina pectoris
CPT/HCPCS: 36415; 80053; 83735; 85027

== ENCOUNTER → 2024-04-15 10:03 | Outpatient (CLI) | payer MEDICARE, SELFPAY ==
[2024-04-15 11:26] LABS: Creatinine Urine Random 130.15 mg/dL
[2024-04-15 11:32] LABS: Microalbumin Urine Random 1.5 mg/dL (0-1.6)
[2024-04-15 13:34] LABS: Prostate Specific Antigen 3.03 ng/mL (0.10-4.00)
== END ==
LOC: LAB 10:05
PROVIDERS: Urology; Family Provider Urology; PCP Internal Medicine; Referring Provider Internal Medicine; Visit Provider Internal Medicine
DX: N40.1 Benign prostatic hyperplasia with lower urinary tract symptoms (principal); N13.8 Other obstructive and reflux uropathy; E11.59 Type 2 diabetes mellitus with other circulatory complications
CPT/HCPCS: 36415; 82043; 82570; 83036; 84153

== ENCOUNTER → 2024-06-11 14:25 | Outpatient (CLI) | payer MEDICARE, SELFPAY ==
--- NOTE | 2024-06-11 14:27 | DI.RAD.S_ITS ---
PROCEDURE: XR LUMBAR SPINE MIN 4V INDICATIONS: BACK PAIN TECHNIQUE: 5 views of the lumbar spine were acquired, including bilateral oblique views. COMPARISON: [facility], CT, CT ABDOMEN PELVIS W CON, 08/06/2022, 11:47. [facility], MR, MR LUMBAR SPINE WO CON, 11/25/2019, 9:01. [facility], CR, XR LUMBAR SPINE 2-3V, 11/25/2019, 9:25. FINDINGS: Bones: 5 nonrib-bearing vertebrae are present. No vertebral body compression fractures. No suspicious bony lesions. Right hip arthroplasty hardware is partially seen. Minimal retrolisthesis is seen at L1-L2, with grade 1 retrolisthesis at L2-L3. Minimal retrolisthesis is seen at L3-L4 and at L4-L5. Moderate disc space narrowing can be seen at L1-L2. There is moderate to severe disc space narrowing seen at L2-L3, with associated endplate irregularity and sclerosis. There is mild disc space narrowing at L3-L4. Lower lumbar spine facet arthropathy is seen. Soft tissues: Overlying bowel gas pattern is normal. No suspicious soft tissue calcifications. Oblique images: No pars defects. IMPRESSION: Multiple levels of lumbar spine degenerative change can be seen, which are worst at the L2-L3 level. Dictated by: Ronal Gandhi M.D. on 06/11/2024 at 14:25 Approved by: Ronal Gandhi M.D. on 06/11/2024 at 14:27
== END ==
PROVIDERS: Family Provider Urology; PCP Internal Medicine; Referring Provider Internal Medicine; Visit Provider Internal Medicine
DX: M47.26 Other spondylosis with radiculopathy, lumbar region (principal); M51.16 Intervertebral disc disorders with radiculopathy, lumbar region; Z96.641 Presence of right artificial hip joint
CPT/HCPCS: 72110

== ENCOUNTER 2024-06-18 08:38 | Outpatient (CLI) | payer MEDICARE, SELFPAY ==
[2024-06-18] VITALS (8 sets, daily range): BP systolic 116–141; BP diastolic 67–83; PULSE 55–68; RESP 12–17; TEMP 36.3; O2SAT 95–99
[2024-06-18] MEDS: MIDAZOLAM 2 MG/2 ML VIAL IV (09:27)
[2024-06-18] MEDS: iopamidoL 15 ML VIAL 3 ML INJ (09:31)
[2024-06-18] MEDS: BUPIVACAINE 0.5% (PF) 10 ML VIAL 2 ML INJ (09:32)
--- NOTE | 2024-06-18 09:43 | PM.PROC.IR.1 ---
Date/Time/Diagnoses Date of procedure: 06/18/24 Time of procedure: 09:43 Pre-procedure diagnosis: FACET ARTHROPATHY Post-procedure diagnosis: same Procedure Notes Procedure: 1. LEFT L3, L4 AND L5 DIAGNOSTIC MB BLOCKS Indications: Manny is referred by Dr. Joshi for treatment of Left Axial LBP. Physician: Julio James Total Fluoroscopy time (seconds): 5 Total sedation minutes: 10 Complications: none Procedure in detail & Post-procedure care: DESCRIPTION OF PROCEDURE Fluoroscopically guided, contrast-controlled left L3, L4 AND L5 medial branch blocks with 0.5cc of 0.5% Marcaine. Following review of allergy and review of potential side effects and complications, including, but not necessarily limited to, infection, allergic reaction, local tissue breakdown, nerve injury, paralysis, stroke and possible , the patient indicated that the patient understood and agreed to proceed. An informed consent document was signed by the patient, witnessed by a nurse, and placed in the patient's chart. After review of previous anaesthesic history and IV conscious sedation the patient was deemed safe to proceed with today's procedure with IV conscious sedation as ASA class II designation. Safety time-out was performed to confirm patient ID, procedure to be performed and site of procedure. IV sedation was accomplished with a combination of 2mg of Versed was administered by the RN after DO order, titrated to patient comfort during the course of the procedure while the patient remained responsive to all verbal commands In the prone position, following sterile prep and drape of the lumbar region, the left L3, L4 AND L5 anatomical location of the medial branch of the dorsal ramus was identified fluoroscopically. Subsequently an anesthetic skin wheal using 1% lidocaine solution was initiated at each of the anatomical spots. Subsequently then a 22-gauge 3.5-inch spinal needle was atraumatically introduced and advanced under fluoroscopic guidance at each of the corresponding sites at the left L3, L4 and L5 MB. After negative aspiration, 0.2cc of Isovue 200 was injected, confirming placement without vascular or intrathecal uptake. Subsequently then 0.5cc of 0.5% Marcaine solution was injected at each of the corresponding sites at the left L3, L4 and L5 medial branch locations. The patient tolerated the procedure well without signs or symptoms of complications. The patient tolerated the procedure well without signs or symptoms of complications prior to transfer to the recovery area continued monitoring without incident. Post-procedure, the patient was monitored initiating provocative activities to measure the amount of relief from block of the facetogenic pain. The patient reported a VAS of 7 prior to the procedure and a post-procedure VAS of 1. It has been a pleasure to assist in the diagnostic and therapeutic care of your patient. POST OP INSTRUCTIONS The patient was provided with a Pain Log to complete over the next several hours and subsequent days prior to the patient's follow up with the ordering physician. If the patient has business management specialist relief to the solution applied, then they may be a candidate for medial branch rhizotomy. The patient is aware, was provided, once again, with a Pain Log and will follow up with the referring physician for review and clinical correlation
== END 2024-06-18 10:00 | disposition home or self-care (01) ==
LOC: RAD 08:38
PROVIDERS: Family Provider Urology; PCP Internal Medicine; Referring Provider Physical Medicine & Rehabilitation; Visit Provider Physical Medicine & Rehabilitation
DX: M47.816 Spondylosis without myelopathy or radiculopathy, lumbar region (principal)
CPT/HCPCS: 64493; 64494; 99152; J2250

== ENCOUNTER → 2024-07-16 09:12 | Outpatient (CLI) | payer MEDICARE, SELFPAY ==
[2024-07-16 10:12] LABS: Blood Urea Nitrogen 10 mg/dL (9-20); Calcium 9.3 mg/dL (8.4-10.2); Carbon Dioxide 23 mmol/L (22-32); Chloride 105 mmol/L (98-107); Estimated Glomerular Filt Rate > 60 mL/min (>60); Glucose 111 mg/dL (70-99); HEMOLYSIS < 15 (0-50); Potassium 4.2 mmol/L (3.4-5.1); Sodium 139 mmol/L (137-145)
[2024-07-16 10:24] LABS: Creatinine Urine Random 90.59 mg/dL
[2024-07-16 10:27] LABS: Microalbumin Urine Random 0.9 mg/dL (0-1.6)
== END ==
PROVIDERS: PCP Internal Medicine; Referring Provider Internal Medicine; Visit Provider Internal Medicine
DX: E11.59 Type 2 diabetes mellitus with other circulatory complications (principal)
CPT/HCPCS: 36415; 80048; 82043; 82570; 83036

== ENCOUNTER → 2024-10-22 08:52 | Outpatient (CLI) | payer MEDICARE, SELFPAY ==
[2024-10-22 10:09] LABS: Alanine Aminotransferase 26 IU/L (<50); Albumin 4.4 g/dL (3.5-5.0); Albumin Globulin Ratio 1.8 (1.0-2.8); Alkaline Phosphatase 57 U/L (38-126); Blood Urea Nitrogen 17 mg/dL (9-20); Calcium 9.5 mg/dL (8.4-10.2); Carbon Dioxide 27 mmol/L (22-32); Chloride 104 mmol/L (98-107); Estimated Glomerular Filt Rate > 60 mL/min (>60); Globulin 2.4 g/dL (1.7-4.1); Glucose 122 mg/dL (70-99); HEMOLYSIS < 15 (0-50); Magnesium 2.0 mg/dL (1.6-2.3); Potassium 5.2 mmol/L (3.4-5.1); Sodium 137 mmol/L (137-145); Total Protein 6.8 g/dL (6.3-8.2)
[2024-10-24 13:36] LABS: Cholesterol, Total 155 mg/dL (100-199); HDL-Particle (Total) 34.4 umol/L (>=30.5); LDL Particle 857 nmol/L (<1000); LDL-Cholsterol 75 mg/dL (0-99); Small LDL- Particle 297 nmol/L (<=527); Triglycerides 99 mg/dL (0-149)
== END ==
PROVIDERS: PCP Internal Medicine; Referring Provider Specialist; Visit Provider Specialist
DX: I10 Essential (primary) hypertension (principal); E78.00 Pure hypercholesterolemia, unspecified; I25.10 Atherosclerotic heart disease of native coronary artery without angina pectoris
CPT/HCPCS: 36415; 80053; 80061; 83695; 83704; 83735

== ENCOUNTER → 2025-01-14 08:27 | Outpatient (CLI) | payer MEDICARE, SELFPAY ==
[2025-01-14 09:19] LABS: Hemoglobin A1C% w Est Avg Glu 6.2 % (4.0-6.0)
[2025-01-14 09:41] LABS: Blood Urea Nitrogen 11 mg/dL (9-20); Calcium 9.1 mg/dL (8.4-10.2); Carbon Dioxide 24 mmol/L (22-32); Chloride 105 mmol/L (98-107); Estimated Glomerular Filt Rate > 60 mL/min (>60); Glucose 141 mg/dL (70-99); HEMOLYSIS < 15 (0-50); Potassium 4.7 mmol/L (3.4-5.1); Sodium 138 mmol/L (137-145)
== END ==
PROVIDERS: PCP Internal Medicine; Referring Provider Internal Medicine; Visit Provider Internal Medicine
DX: E11.59 Type 2 diabetes mellitus with other circulatory complications (principal)
CPT/HCPCS: 36415; 80048; 83036